=== PATIENT | male | born 1950 | race Caucasian/White ===

== ENCOUNTER 2022-07-21 13:46 | Emergency (ER) | payer MEDICARE, OTHER, SELFPAY ==
[2022-07-21 13:50] VITALS: BP 146/70; PULSE 67; RESP 18; TEMP 36.9; O2SAT 98
--- NOTE | 2022-07-21 14:08 | DI.RAD.S_ITS ---
PROCEDURE: XR CHEST 1V INDICATIONS: chest pain TECHNIQUE: One view of the chest was acquired. COMPARISON: None. FINDINGS: Surgical changes and devices: Sternotomy and CABG. Lungs and pleura: Mildly increased pulmonary vascularity. No pleural effusions or pneumothorax. Mediastinum: Mediastinal contours appear normal. Heart size is mildly increased. Bones and chest wall: No suspicious bony lesions. Overlying soft tissues appear unremarkable. IMPRESSION: Mild cardiomegaly and mildly increased pulmonary vascularity suggesting mild CHF. Dictated by: Darryl Palomino M.D. on 07/21/2022 at 14:30 Approved by: Darryl Palomino M.D. on 07/21/2022 at 14:31
[2022-07-21 14:26] LABS: Add Manual Diff / Slide Review NO; Basophils Absolute Auto 100 /uL (0-100); Basophils Percent Auto 0.7 % (0-2); Eosinophils Absolute Auto 300 /uL (0-450); Eosinophils Percent Auto 2.9 % (2-4); Hematocrit 21.6 % (41-53); Hemoglobin 7.7 g/dL (13.5-17.5); Lymphocytes Absolute Auto 1300 /uL (1100-4500); Lymphocytes Percent Auto 14.2 % (25-40); Mean Corpuscular HGB Conc 35.4 % (30-36); Mean Corpuscular Hemoglobin 35.2 PG (26-34); Mean Corpuscular Volume 99.6 fL (80-100); Monocytes Absolute Auto 500 /uL (0-900); Monocytes Percent Auto 5.8 % (3-14); Neutrophils Absolute Auto 7000 /uL (1500-7000); Neutrophils Percent Auto 76.4 % (50-75); Platelet Count 168 X10^3/uL (150-400); Red Blood Cell Count 2.17 X10^6/uL (4.5-5.9); White Blood Cell Count 9.2 X10^3/uL (4.5-11.0)
[2022-07-21 14:35] LABS: Alanine Aminotransferase 16 IU/L (<50); Albumin 3.9 g/dL (3.5-5.0); Albumin Globulin Ratio 1.3 (1.0-2.8); Alkaline Phosphatase 105 U/L (38-126); Aspartate Aminotransferase 28 IU/L (17-59); Bilirubin Total 0.5 mg/dL (0.2-1.3); Calcium 8.3 mg/dL (8.4-10.2); Carbon Dioxide 26 mmol/L (22-32); Chloride 93 mmol/L (98-107); Creatine Kinase 70 U/L (55-170); Globulin 3.1 g/dL (1.7-4.1); Glucose 90 mg/dL (80-110); HEMOLYSIS < 15 (0-50); Lipase 188 U/L (23-300); Magnesium 2.5 mg/dL (1.6-2.3); Potassium 4.5 mmol/L (3.4-5.1); Sodium 138 mmol/L (137-145)
[2022-07-21 14:46] LABS: Troponin I 0.016 ng/mL (0.01-0.034)
[2022-07-21 14:48] LABS: BUN Creatinine Ratio 6.1 (6-22); Estimated Glomerular Filt Rate 4 mL/min (>60)
[2022-07-21 14:50] LABS: Blood Urea Nitrogen 74 mg/dL (9-20)
[2022-07-21 16:10] LABS: Prothrombin Time 11.9 SECONDS (10.1-12.7)
[2022-07-21 16:12] LABS: Lactate Dehydrogenase 355 U/L (313-618)
[2022-07-21 16:13] LABS: PTT Partial Thromboplastin Tim 30 SECONDS (26-36)
[2022-07-21 16:40] VITALS: BP 144/72; PULSE 64
[2022-07-21 16:42] VITALS: BP 146/72; PULSE 65
--- NOTE | 2022-07-21 16:44 | ED_ITS ---
HPI - Syncope General Chief Complaint: Syncope Stated Complaint: Syncope Time Seen by Provider: 07/21/22 14:06 Source: patient and EMS Mode of arrival: EMS Limitations: no limitations History of Present Illness HPI narrative: Patient is a 71-year-old male who presents to the emergency room today with complaint of decreased level of consciousness started today while he was in a soccer game. states that she noticed it while the patient was at the game he had some food in his hand and he slowly started to slump over and food started to fall onto the ground. As the and daughter tried to arouse the patient he was arousable. The patient never lost consciousness. Patient states he remembers everything and did not pass out. Patient admits to a history of hypertension history of current renal failure and need for daily dialysis and history of a recent AAA that was done in February. Patient also admits to a recent diagnosis of anemia that needs to be worked up. States that the nurse of his dialysis provider informed him that his hemoglobin was low on Saturday of last week and that he needs to follow up with them for an appointment. Patient also states that he needed a L of blood infused after his AAA surgery done. also states the patient has been receiving iron. Patient and states that they are from out of town and just relocated to this area on your leg to establish care. Patient is here being seen at a clinic in [place] and that their kidney doctor this time is Dr. Wei. Patient denies hematemesis hematochezia or hematuria. Patient states that she has an appointment scheduled on July 27 with a provider locally here establish PCP care. Patient also states that he is currently on Plavix. Related Data Allergies Allergy/AdvReac Type Severity Reaction Status Date / Time No Known Drug Allergies Allergy Verified 07/21/22 14:03 Review of Systems Review of Systems Narrative: R.O.S.: General: No fever, chills or fatigue. Cardiovascular: No chest pain or palpitations Respiratory: No S.O.B. HEENT: No congestion, ear pain, rhinorrhea, sore throat or tinnitus Gastrointestinal: No nausea or vomiting : No urinary concerns Skin: No rash or associated abnormalities Musculoskeletal: No pain in muscles or joints, no limitation of range of motion, no paresthesia or numbness. ?? Neurological: Incident of decreased level consciousness Patient History Social History Smoking Status: Current every day smoker Smoking Status: Current every day smoker tobacco type: cigarettes alcohol intake frequency: holidays/special occasions only Substance Use Type: does not use Exam Narrative Exam Narrative: Physical Exam: ? General: normal appearance, well developed, well nourished, alert, and awake. Not in acute distress. ? Head: Normocephalic, no lesions. Chest: Lungs CTAB, no rales, rhonchi or wheezes. ?? Heart: RRR, no murmurs, rubs or gallops. Eyes: PERRLA, EOM's full, conjunctivae clear. ? Neuro: Physiological, no localizing findings, CN3-12 intact. ?? Extremities: Warm, well perfused, FROM, no deformities, no edema. ?? Skin: Normal, no rashes, no lesions noted. ?? PSYCHIATRIC: The mood is good, no blunted affect. Speech is clear. Thought process is linear, thought content is appropriate. The voice is without significant inflection. Gastrointestinal: Soft; NT; ND; Pos BS with Neg. rebound tenderness. No scars or major deformities noted on Visual Inspection. Rectal: Guaiac was negative. Rectal exam was unremarkable. Patient had no worse lesions vesicles lacerations tears or active bleeding noted on vis ualization of the anus. Patient also had good rectal tone. Initial Vital Signs Initial Vital Signs: Vital Signs Temperature 98.4 F 07/21/22 13:50 Pulse Rate 67 07/21/22 13:50 Respiratory Rate 18 07/21/22 13:50 Blood Pressure 146/70 H 07/21/22 13:50 Pulse Oximetry 98 07/21/22 13:50 Oxygen Delivery Method 07/21/22 13:50 Course Orders Ordered: ED Orders 07/21/22 14:04 EKG-12 Lead Routine 07/21/22 14:08 XR chest 1V Stat 07/21/22 14:24 Complete Blood Count AUTO DIFF Stat Comprehensive Metabolic Panel Stat Lipase Stat Magnesium Stat Troponin & CK Cardiac Panel Stat 07/21/22 15:00 Type and Screen Stat 07/21/22 16:04 Lactate Dehydrogenase Stat PTT [Partial Thromboplastin Time] Stat Prothrombin Time INR Stat Vital Signs Vital signs: Vital Signs - 8 hr 07/21/22 13:50 07/21/22 16:40 07/21/22 16:42 Temperature 98.4 F Pulse Rate 67 64 65 Respiratory Rate 18 Blood Pressure 146/70 H 144/72 H 146/72 H Pulse Oximetry 98 Oxygen Delivery Method Room Air 07/21/22 16:45 Temperature Pulse Rate 72 Respiratory Rate Blood Pressure 114/54 L Pulse Oximetry Oxygen Delivery Method MDM - Syncope Lab Data Result diagrams: 07/21/22 14:24 07/21/22 14:24 Labs: Lab Results 07/21/22 07/21/22 07/21/22 Range/Units 14:24 14:24 15:00 WBC 9.2 (4.5-11.0) X10^3/uL RBC 2.17 L (4.5-5.9) X10^6/uL Hgb 7.7 L (13.5-17.5) g/dL Hct 21.6 L (41-53) % MCV 99.6 (80-100) fL MCH 35.2 H (26-34) PG MCHC 35.4 (30-36) % RDW 15.0 H (11.6-14.8) % Plt Count 168 (150-400) X10^3/uL Neut % (Auto) 76.4 H (50-75) % Lymph % (Auto) 14.2 L (25-40) % [place] % (Auto) 5.8 (3-14) % Eos % (Auto) 2.9 (2-4) % Baso % (Auto) 0.7 (0-2) % Neut # (Auto) 7000 (9033-5592) /uL Lymph # (Auto) 1300 (9782-5286) /uL [place] # (Auto) 500 (0-900) /uL Eos # (Auto) 300 (0-450) /uL Baso # (Auto) 100 (0-100) /uL PT (10.1-12.7) SECONDS INR (0.9-1.3) APTT (26-36) SECONDS Sodium 138 (137-145) mmol/L Potassium 4.5 (3.4-5.1) mmol/L Chloride 93 L (98-107) mmol/L Carbon Dioxide 26 (22-32) mmol/L BUN 74 H (9-20) mg/dL Creatinine 12.15 H* (0.66-1.25) mg/dL Estimated GFR 4 L (>60) mL/min BUN/Creatinine Ratio 6.1 (6-22) Glucose 90 (80-110) mg/dL Calcium 8.3 L (8.4-10.2) mg/dL Magnesium 2.5 H (1.6-2.3) mg/dL Total Bilirubin 0.5 (0.2-1.3) mg/dL AST 28 (17-59) IU/L ALT 16 (<50) IU/L Alkaline Phosphatase 105 (38-126) U/L Lactate Dehydrogenase (313-618) U/L Total Creatine Kinase 70 (55-170) U/L CK-MB (CK-2) TNP CK-MB (CK-2) Rel Index TNP Troponin I 0.016 (0.01-0.034) ng/mL Total Protein 7.0 (6.3-8.2) g/dL Albumin 3.9 (3.5-5.0) g/dL Globulin 3.1 (1.7-4.1) g/dL Albumin/Globulin Ratio 1.3 (1.0-2.8) Lipase 188 (23-300) U/L Blood Type O Positive Antibody Screen Negative 07/21/22 07/21/22 Range/Units 16:04 16:04 WBC (4.5-11.0) X10^3/uL RBC (4.5-5.9) X10^6/uL Hgb (13.5-17.5) g/dL Hct (41-53) % MCV (80-100) fL MCH (26-34) PG MCHC (30-36) % RDW (11.6-14.8) % Plt Count (150-400) X10^3/uL Neut % (Auto) (50-75) % Lymph % (Auto) (25-40) % [place] % (Auto) (3-14) % Eos % (Auto) (2-4) % Baso % (Auto) (0-2) % Neut # (Auto) (1572-5706) /uL Lymph # (Auto) (5871-6665) /uL [place] # (Auto) (0-900) /uL Eos # (Auto) (0-450) /uL Baso # (Auto) (0-100) /uL PT 11.9 (10.1-12.7) SECONDS INR 1.0 (0.9-1.3) APTT 30 (26-36) SECONDS Sodium (137-145) mmol/L Potassium (3.4-5.1) mmol/L Chloride (98-107) mmol/L Carbon Dioxide (22-32) mmol/L BUN (9-20) mg/dL Creatinine (0.66-1.25) mg/dL Estimated GFR (>60) mL/min BUN/Creatinine Ratio (6-22) Glucose (80-110) mg/dL Calcium (8.4-10.2) mg/dL Magnesium (1.6-2.3) mg/dL Total Bilirubin (0.2-1.3) mg/dL AST (17-59) IU/L ALT (<50) IU/L Alkaline Phosphatase (38-126) U/L Lactate Dehydrogenase 355 (313-618) U/L Total Creatine Kinase (55-170) U/L CK-MB (CK-2) CK-MB (CK-2) Rel Index Troponin I (0.01-0.034) ng/mL Total Protein (6.3-8.2) g/dL Albumin (3.5-5.0) g/dL Globulin (1.7-4.1) g/dL Albumin/Globulin Ratio (1.0-2.8) Lipase (23-300) U/L Blood Type Antibody Screen MDM Narrative Medical decision making narrative: Patient is a 71-year-old male who presents to the emergency room today with complaint a decreased level of consciousness that occurred while at a soccer game today. Labs revealed anemia and to the patient's history he has anemia that has been treated with iron and needs further workup. This will be done by the patient's dialysis provide her PCP. Patient has an appointment scheduled to establish care with his PCP. Patient is seeing his dialysis provider regularly. Guaiac stool was negative patient posturals were not indicative of any emergent concerns at this time. Patient advised to follow up with his provider and dialysis provider. Patient advised to return to the emergency room if any emergent concerns arise. Discharge Plan Departure Patient Disposition: Home Clinical Impression: Decreased level of consciousness, Syncope due to orthostatic hypotension Instructions: DI for Syncope in Adults (Fainting), Fainting Activity Restrictions/Additional Instructions: *You have been diagnosed with decreased level of consciousness has resolved. It was also noted that you have anemia. I suggest you continue to follow-up with her primary care provider and your renal provider in regards to your anemia. Also suggest she return to the emergency room if any [ ] *What to do: *Please continue to take your regular medications as directed. [ ] New medication prescriptions sent to your pharmacy: [ ] [ ] New medication written as a paper prescription [x]Emergent concerns arise.] No new medications given *Please follow up with your primary care provider in 2-3 days, call for an appointment. Let them know you were seen in the Emergency Department and that we ask that you be seen in follow up. We will electronically transmit a record of today's note if your PCP is in our system *If you do not have a primary care provider please contact the [facility] Resource line at [phone]. They will ask some questions about your medical history and help get you set up with a doctor in the community. *Return to Emergency Department if you should have any new, worsening or concerning symptoms, such as [fever greater than 101 F, shaking chills, worsening pain, persistent vomiting or other bothersome symptoms] Referrals: Lei Newman, [Primary Care Provider] - Visit Report Forms: Patient Portal/API
[2022-07-21 16:45] VITALS: BP 114/54; PULSE 72
== END 2022-07-21 17:10 | disposition home or self-care (01) ==
PROVIDERS: Emergency Provider Physician Assistant; PCP Family Medicine
DX: I95.1 Orthostatic hypotension (principal); R41.89 Other symptoms and signs involving cognitive functions and awareness
CPT/HCPCS: 71045; 80053; 82550; 83615; 83690; 83735; 84484; 85025; 85610; 85730; 86850; 86900; 86901; 93005; 99282; 99284

== ENCOUNTER → 2022-07-27 12:28 | Outpatient (CLI) | payer MEDICARE, OTHER, SELFPAY ==
[2022-07-27 12:58] LABS: Reticulocyte Count, Percent 3.9 % (0.9-2.6)
[2022-07-27 12:59] LABS: Add Manual Diff / Slide Review NO; Basophils Absolute Auto 0 /uL (0-100); Basophils Percent Auto 0.6 % (0-2); Eosinophils Absolute Auto 200 /uL (0-450); Eosinophils Percent Auto 2.4 % (2-4); Hemoglobin 7.2 g/dL (13.5-17.5); Lymphocytes Absolute Auto 900 /uL (1100-4500); Lymphocytes Percent Auto 12.3 % (25-40); Mean Corpuscular Hemoglobin 35.8 PG (26-34); Mean Corpuscular Volume 99.4 fL (80-100); Monocytes Absolute Auto 400 /uL (0-900); Monocytes Percent Auto 5.5 % (3-14); Neutrophils Absolute Auto 5600 /uL (1500-7000); Neutrophils Percent Auto 79.2 % (50-75); Platelet Count 158 X10^3/uL (150-400); Red Cell Distribution Width 14.9 % (11.6-14.8); White Blood Cell Count 7.1 X10^3/uL (4.5-11.0)
[2022-07-27 13:04] LABS: Hematocrit 19.9 % (41-53)
[2022-07-27 13:41] LABS: HEMOLYSIS < 15 (0-50); Iron 186 ug/dL (49-181)
[2022-07-27 13:43] LABS: Alanine Aminotransferase 13 IU/L (<50); Albumin 3.6 g/dL (3.5-5.0); Albumin Globulin Ratio 1.4 (1.0-2.8); Alkaline Phosphatase 105 U/L (38-126); Aspartate Aminotransferase 18 IU/L (17-59); Bilirubin Total 0.5 mg/dL (0.2-1.3); Blood Urea Nitrogen 68 mg/dL (9-20); Carbon Dioxide 25 mmol/L (22-32); Chloride 94 mmol/L (98-107); Cholesterol 94 mg/dL (140-199); Globulin 2.5 g/dL (1.7-4.1); Glucose 142 mg/dL (80-110); HDL Cholesterol 28 mg/dL (40-60); HEMOLYSIS < 15 (0-50); LDL Cholesterol Calculated 40 mg/dL (<100); Potassium 4.6 mmol/L (3.4-5.1); Sodium 138 mmol/L (137-145); Total Protein 6.1 g/dL (6.3-8.2); Triglycerides 129 mg/dL (35-150)
[2022-07-27 13:51] LABS: BUN Creatinine Ratio 6.1 (6-22); Estimated Glomerular Filt Rate 5 mL/min (>60)
[2022-07-27 13:52] LABS: Percent Iron Saturation 67 % (20-50); Total Iron Binding Capacity 278 ug/dL (261-462); Transferrin 201 mg/dL (206-381)
[2022-07-27 14:13] LABS: TSH w/ Reflex to FT4 2.08 uIU/mL (0.47-4.68)
[2022-07-27 14:31] LABS: Vitamin B12 796 pg/mL (239-931)
== END ==
PROVIDERS: PCP Family Medicine; Referring Provider Family Medicine; Visit Provider Family Medicine
DX: D64.9 Anemia, unspecified (principal)
CPT/HCPCS: 36415; 80053; 80061; 82607; 83540; 83550; 84443; 85025; 85045

== ENCOUNTER 2022-07-27 13:51 | Emergency (ER) | payer MEDICARE, OTHER, SELFPAY ==
[2022-07-27] VITALS (15 sets, daily range): BP systolic 130–161; BP diastolic 63–73; PULSE 64–72; RESP 16–20; TEMP 36.4–36.9; O2SAT 93–99; BMI 26.9
--- NOTE | 2022-07-27 14:11 | ED_ITS ---
HPI - Recheck/Abnormal Lab/Rx <Eleazar Gould DO - Last Filed: 07/27/22 18:17> General Chief Complaint: Recheck/Abnormal Lab/Rx Stated Complaint: Anemic- sent by Time Seen by Provider: 07/27/22 14:04 Source: patient Mode of arrival: Ambulatory History of Present Illness HPI narrative: Patient is a 71-year-old male. His end-stage renal disease. Does peritoneal dialysis at night. Also has history of coronary artery disease. Several days ago he was seen in the emergency department eventually released after having an episode of lightheadedness. He was following up with a new primary doctor when labs were drawn today. His hemoglobin hematocrit lower from a couple days ago. He was sent back to the emergency department to have a blood transfusion. Patient states that he is feeling about the same as what he did couple days ago. He has had blood transfusion in the past. He understands risks and benefits. Has no questions. Has been taking all his medications as directed. Related Data Home Medications Medication Instructions Recorded Confirmed WesTab (Lactose Free) PO 07/27/22 07/27/22 aspirin 325 mg tablet 325 mg PO DAILY 07/27/22 07/27/22 calcitriol 0.25 mcg capsule 0.25 mcg PO 07/27/22 07/27/22 sevelamer carbonate 800 mg tablet 800 mg PO .COMPLEX 07/27/22 07/27/22 Previous Rx's Medication Instructions Recorded amlodipine 10 mg tablet 10 mg PO DAILY #90 tabs 07/27/22 atorvastatin 40 mg tablet 40 mg PO BEDTIME #90 tabs 07/27/22 carvedilol 25 mg tablet 25 mg PO BID #180 tabs 07/27/22 clopidogrel 75 mg tablet 75 mg PO DAILY #90 tabs 07/27/22 isosorbide mononitrate 60 mg 60 mg PO DAILY #90 tabs 07/27/22 tablet,extended release 24 hr pantoprazole 40 mg tablet,delayed 40 mg PO DAILY #90 tabs 07/27/22 release zolpidem 5 mg tablet 5 mg PO BEDTIME PRN insomnia #30 07/27/22 tabs Allergies Allergy/AdvReac Type Severity Reaction Status Date / Time No Known Drug Allergies Allergy Verified 07/27/22 14:02 Review of Systems <DO Omari Farooq Last Filed: 07/27/22 18:17> Review of Systems ROS Unobtainable: All systems reviewed & are unremarkable except as noted in HPI and below Patient History <DO Omari Farooq Last Filed: 07/27/22 18:17> Medical History Abdominal aneurysm without mention of rupture Anemia CAD (coronary artery disease) GERD (gastroesophageal reflux disease) Hyperlipidemia Hypertension Insomnia Renal failure Social History Smoking Status: Current every day smoker Smoking Status: Current every day smoker tobacco type: cigarettes alcohol intake frequency: holidays/special occasions only Substance Use Type: does not use Exam <DO Omari Farooq Last Filed: 07/27/22 18:17> Initial Vital Signs Initial Vital Signs: Vital Signs Pulse Rate 72 07/27/22 13:56 Blood Pressure 139/65 07/27/22 13:56 Pulse Oximetry 93 07/27/22 13:56 Oxygen Delivery Method 07/27/22 13:56 Const General: cooperative HENMT Head: normal to inspection and normocephalic Resp Effort & Inspection: normal respiratory effort Auscultation: clear to auscultation bilaterally Cardio Rate: regular rate Rhythm: regular rhythm GI Inspection: normal to inspection Skin General: no rashes or lesions noted Neuro General: patient alert, patient awake and moves all extremities Extrem General: normal to inspection and capillary refill normal <Terrance Paredes DO - Last Filed: 07/28/22 00:25> Initial Vital Signs Initial Vital Signs: Vital Signs Pulse Rate 72 07/27/22 13:56 Blood Pressure 139/65 07/27/22 13:56 Pulse Oximetry 93 07/27/22 13:56 Oxygen Delivery Method 07/27/22 13:56 Course <Eleazar Gould DO - Last Filed: 07/27/22 18:17> Orders Ordered: ED Orders 07/27/22 18:30 Hemoglobin and Hematocrit Stat Vital Signs Vital signs: Vital Signs - 8 hr 07/27/22 16:37 07/27/22 16:30 07/27/22 16:30 Temperature 97.6 F Pulse Rate 68 68 Respiratory Rate 16 Blood Pressure 158/73 H 161/72 H Pulse Oximetry 99 Oxygen Delivery Method Room Air 07/27/22 16:37 07/27/22 16:37 07/27/22 17:00 Temperature Pulse Rate 68 Respiratory Rate Blood Pressure 158/73 H 148/69 H Pulse Oximetry 99 Oxygen Delivery Method Room Air 07/27/22 17:00 07/27/22 17:57 07/27/22 17:30 Temperature 98.2 F Pulse Rate 64 65 Respiratory Rate 16 Blood Pressure 150/72 H 149/70 H Pulse Oximetry 98 Oxygen Delivery Method Room Air 07/27/22 17:30 07/27/22 17:57 07/27/22 17:57 Temperature Pulse Rate 65 65 Respiratory Rate Blood Pressure 150/72 H Pulse Oximetry 96 96 Oxygen Delivery Method Room Air Room Air 07/27/22 18:00 07/27/22 18:00 07/27/22 18:30 Temperature Pulse Rate 65 Respiratory Rate Blood Pressure 150/73 H 151/72 H Pulse Oximetry 97 Oxygen Delivery Method 07/27/22 18:30 Temperature Pulse Rate 65 Respiratory Rate Blood Pressure Pulse Oximetry 97 Oxygen Delivery Method Room Air <Terrance Paredes, DO - Last Filed: 07/28/22 00:25> Orders Ordered: ED Orders 07/27/22 18:30 Hemoglobin and Hematocrit Stat Vital Signs Vital signs: Vital Signs - 8 hr 07/27/22 16:37 07/27/22 16:30 07/27/22 16:30 Temperature 97.6 F Pulse Rate 68 68 Respiratory Rate 16 Blood Pressure 158/73 H 161/72 H Pulse Oximetry 99 Oxygen Delivery Method Room Air 07/27/22 16:37 07/27/22 16:37 07/27/22 17:00 Temperature Pulse Rate 68 Respiratory Rate Blood Pressure 158/73 H 148/69 H Pulse Oximetry 99 Oxygen Delivery Method Room Air 07/27/22 17:00 07/27/22 17:57 07/27/22 17:30 Temperature 98.2 F Pulse Rate 64 65 Respiratory Rate 16 Blood Pressure 150/72 H 149/70 H Pulse Oximetry 98 Oxygen Delivery Method Room Air 07/27/22 17:30 07/27/22 17:57 07/27/22 17:57 Temperature Pulse Rate 65 65 Respiratory Rate Blood Pressure 150/72 H Pulse Oximetry 96 96 Oxygen Delivery Method Room Air Room Air 07/27/22 18:00 07/27/22 18:00 07/27/22 18:30 Temperature Pulse Rate 65 Respiratory Rate Blood Pressure 150/73 H 151/72 H Pulse Oximetry 97 Oxygen Delivery Method 07/27/22 18:30 Temperature Pulse Rate 65 Respiratory Rate Blood Pressure Pulse Oximetry 97 Oxygen Delivery Method Room Air MDM - Recheck/Abnormal Lab/Rx <Eleazar Gould, DO - Last Filed: 07/27/22 18:17> Lab Data Result diagrams: 07/27/22 18:30 Labs: Lab Results 07/27/22 07/27/22 Range/Units 14:10 18:30 Hgb 7.3 L (13.5-17.5) g/dL Hct 20.3 L* (41-53) % Blood Type O Positive Antibody Screen Negative Crossmatch See Detail ECG Data Attestation: I personally reviewed and interpreted this ECG as follows: Interpretation: Sinus rhythm Ventricular rate is 69 Normal axis Normal QRS Normal QTC No ST T wave changes [facility] Narrative Medical decision making narrative: Patient is anemic. It is slightly lower than what it was a couple days ago. He has no signs of any acute bleeding. Has symptoms that could very well be because he is anemic. He has had a blood transfusion in the past. Will transfuse 1 unit of packed red blood cells. Care turned over to Dr. Paredes to follow-up and disposition after transfusion. <Terrance Paredes, DO - Last Filed: 07/28/22 00:25> Lab Data Labs: Lab Results 07/27/22 07/27/22 Range/Units 14:10 18:30 Hgb 7.3 L (13.5-17.5) g/dL Hct 20.3 L* (41-53) % Blood Type O Positive Antibody Screen Negative Crossmatch See Detail [facility] Narrative Medical decision making narrative: Patient is anemic. It is slightly lower than what it was a couple days ago. He has no signs of any acute bleeding. Has symptoms that could very well be because he is anemic. He has had a blood transfusion in the past. Will transfuse 1 unit of packed red blood cells. Care turned over to Dr. Paredes to follow-up and disposition after transfusion. [1800] (Reggie) Patient received in sign out from Dr. Mock]. I have reviewed the clinical course and performed an independent history and physical exam.He is feeling much better and hoping he can go home Patient ambulates to the department without difficulty and is not hypoxemic, and is now appropriate for discharge. Patient had questions answered to his apparent satisfaction and is given extensive return precautions Discharge Plan Departure Patient Disposition: Home Clinical Impression: Anemia Qualifiers: Anemia type: unspecified type Qualified Code(s): D64.9 - Anemia, unspecified Instructions: Anemia Activity Restrictions/Additional Instructions: *You have been diagnosed with [symptomatic anemia status post transfusion. Thankfully your history and physical exam are very reassuring and your feeling much better after receiving a unit of blood.] *What to do: *Please continue to take your regular medications as directed. *Please follow up with your primary care provider in 2-3 days, call for an appointment. Let them know you were seen in the Emergency Department and that we ask that you be seen in follow up. We will electronically transmit a record of today's note if your PCP is in our system *Return to Emergency Department if you should have any new, worsening or concerning symptoms, such as [fever greater than 101 F, shaking chills, worsening pain, persistent vomiting or other bothersome symptoms] Prescriptions: No Action calcitriol 0.25 mcg capsule 0.25 mcg PO Label Comments: TAKE 1 CAPSULE BY MOUTH EVERY DAY aspirin 325 mg tablet 325 mg PO DAILY sevelamer carbonate 800 mg tablet 800 mg PO .COMPLEX Rx Instructions: 800 mg orally; must administer with a meal/food Three tabs in AM Two tabs in PM (if snack) WesTab (Lactose Free) PO amlodipine 10 mg tablet 10 mg PO DAILY Qty: 90 3RF atorvastatin 40 mg tablet 40 mg PO BEDTIME Qty: 90 3RF carvedilol 25 mg tablet 25 mg PO BID Qty: 180 3RF Rx Instructions: must administer with a meal/food clopidogrel 75 mg tablet 75 mg PO DAILY Qty: 90 3RF isosorbide mononitrate 60 mg tablet extended release 24 hr 60 mg PO DAILY Qty: 90 3RF pantoprazole 40 mg tablet,delayed release (DR/EC) 40 mg PO DAILY Qty: 90 3RF zolpidem 5 mg tablet 5 mg PO BEDTIME PRN (Reason: insomnia) Qty: 30 2RF Referrals: Lei Newman, [Primary Care Provider] - Visit Report Forms: Patient Portal/API
[2022-07-27 18:37] LABS: Hemoglobin 7.3 g/dL (13.5-17.5)
[2022-07-27 18:39] LABS: Hematocrit 20.3 % (41-53)
== END 2022-07-27 19:05 | disposition home or self-care (01) ==
PROVIDERS: Emergency Medicine; Emergency Provider Emergency Medicine; PCP Family Medicine
DX: D64.9 Anemia, unspecified (principal); N18.6 End stage renal disease; Z99.2 Dependence on renal dialysis; I25.10 Atherosclerotic heart disease of native coronary artery without angina pectoris
CPT/HCPCS: 36415; 36430; 80053; 80061; 82607; 83540; 83550; 84443; 85014; 85018; 85025; 85045; 86850; 86900; 86901; 93005; 93010; 99284; P9016

== ENCOUNTER → 2022-08-04 08:55 | Outpatient (CLI) | payer MEDICARE, OTHER, SELFPAY ==
[2022-08-04 09:19] LABS: Add Manual Diff / Slide Review NO; Basophils Absolute Auto 100 /uL (0-100); Basophils Percent Auto 0.7 % (0-2); Eosinophils Absolute Auto 300 /uL (0-450); Eosinophils Percent Auto 3.1 % (2-4); Hematocrit 23.3 % (41-53); Hemoglobin 8.3 g/dL (13.5-17.5); Lymphocytes Absolute Auto 1100 /uL (1100-4500); Lymphocytes Percent Auto 12.4 % (25-40); Mean Corpuscular HGB Conc 35.8 % (30-36); Mean Corpuscular Hemoglobin 36.2 PG (26-34); Mean Corpuscular Volume 101.1 fL (80-100); Monocytes Absolute Auto 500 /uL (0-900); Monocytes Percent Auto 5.7 % (3-14); Neutrophils Absolute Auto 6900 /uL (1500-7000); Neutrophils Percent Auto 78.1 % (50-75); Platelet Count 146 X10^3/uL (150-400); Red Blood Cell Count 2.31 X10^6/uL (4.5-5.9); Red Cell Distribution Width 16.1 % (11.6-14.8); White Blood Cell Count 8.8 X10^3/uL (4.5-11.0)
== END ==
PROVIDERS: PCP Family Medicine; Referring Provider Family Medicine; Visit Provider Family Medicine
DX: D64.9 Anemia, unspecified (principal)
CPT/HCPCS: 36415; 85025

== ENCOUNTER → 2022-09-19 11:03 | Outpatient (CLI) | payer MEDICARE, OTHER, SELFPAY ==
--- NOTE | 2022-09-19 11:05 | DI.CT.S_ITS ---
PROCEDURE: CT ANGIO ABDOMEN PELVIS INDICATIONS: Follow-up evaluation regarding AAA repair March 2022 TECHNIQUE: After the administration of intravenous contrast, 2.5 mm thick sections acquired from the diaphragm to the symphysis. 10 mm maximum-intensity projection (MIP) reformats were then acquired. For radiation dose reduction, the following was used: automated exposure control. COMPARISON: None. FINDINGS: Image quality: Excellent. Aorta: There is been endograft treatment of an infrarenal abdominal aortic aneurysm. There is no type 1 or type 2 endoleak noted. The excluded aneurysm sac currently measures 4.6 x 4.3 cm. Mesenteric arteries: SMA and celiac are patent. KEITH is probably occluded at its origin. It likely fills retrograde to its origin. Renal arteries: There is aneurysmal dilatation in a fusiform matter of the proximal bilateral renal arteries, which each measure 1.3 cm in diameter. 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 Right pelvic arteries: Patent common iliac and external iliac, nonaneurysmal with no significant stenosis. Left pelvic arteries: Patent common iliac and external iliac, non aneurysmal, with no significant stenosis. Extravascular soft tissues: Lung bases are clear. Mild cardiomegaly. Liver is normal in size and enhancement. Gallbladder is contracted, within normal limits. . Biliary system is non dilated. Pancreas enhances normally. Spleen is enlarged, measuring 14.5 cm. No adrenal nodules. Kidneys are normal in size and enhancement, without hydronephrosis. Non opacified bowel loops are normal in wall thickness and caliber. Moderate abdominal and pelvic ascites. Peritoneal dialysis catheter in place. Bladder is decompressed. No retroperitoneal or mesenteric adenopathy. No ventral hernias. No suspicious bony lesions. No vertebral body compression fractures. IMPRESSION: 1. Remote endovascular repair of an abdominal aortic aneurysm without endoleak. 2. 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 These aneurysmal segments are thrombosed. The kidneys are atrophied, and almost completely nonfunctional. 3. Ascites consistent with peritoneal dialysis, with peroneal dialysis catheter in place. 4. Splenomegaly. Dictated by: Marin Velazquez M.D. on 09/19/2022 at 17:03 Approved by: Marin Velazquez M.D. on 09/19/2022 at 17:14
== END ==
PROVIDERS: PCP Family Medicine; Referring Provider Family Medicine; Visit Provider Family Medicine
DX: I72.2 Aneurysm of renal artery (principal); N26.1 Atrophy of kidney (terminal); R18.8 Other ascites; R16.1 Splenomegaly, not elsewhere classified; Z99.2 Dependence on renal dialysis
CPT/HCPCS: 74174; Q9967

== ENCOUNTER 2022-09-21 14:23 | Emergency (ER) | payer MEDICARE, OTHER, SELFPAY ==
[2022-09-21] VITALS (34 sets, daily range): BP systolic 125–168; BP diastolic 60–110; PULSE 68–84; RESP 12–27; TEMP 36.4–37.2; O2SAT 93–99; BMI 26.6
--- NOTE | 2022-09-21 14:41 | DI.RAD.S_ITS ---
PROCEDURE: XR CHEST 1V INDICATIONS: pulm edema, ascitis, peritoneal dialysis TECHNIQUE: One view of the chest was acquired. COMPARISON: [facility], CR, XR CHEST 1V, 07/21/2022, 14:13. FINDINGS: Surgical changes and devices: Sternotomy wires, presumed prior CABG.. Lungs and pleura: Lungs are mildly edematous. No pleural effusions or pneumothorax. Mediastinum: Mediastinal contours appear normal. Heart size is at the upper limits of normal. Bones and chest wall: No suspicious bony lesions. Overlying soft tissues appear unremarkable. IMPRESSION: Mild chronic volume overload appearance, prior CABG. No pneumonia found. Dictated by: Mitesh Laguerre M.D. on 09/21/2022 at 15:31 Approved by: Mitesh Laguerre M.D. on 09/21/2022 at 15:32
--- NOTE | 2022-09-21 14:46 | ED_ITS ---
HPI - Recheck/Abnormal Lab/Rx General Chief Complaint: Recheck/Abnormal Lab/Rx Stated Complaint: blood count low/blood transfusion/st from clinic Time Seen by Provider: 09/21/22 14:34 Source: patient Mode of arrival: Ambulatory History of Present Illness HPI narrative: This is a 71-year-old gentleman who presents to the emergency department after the peritoneal Dialysis Clinic sent him over to the emergency department for anemia. His end-stage renal disease.? Does peritoneal dialysis at night.? Also has history of coronary artery disease. Patient states that he is feeling about the same as when he received a blood transfusion last time. Him and his care provider do not remember his hemoglobin but states it was likely 6. something. He denies any recent fever, chills, worsening of any specific health concerns. Patient states that his shortness of breath is exertional and it is at baseline for him, states that he has a dialysate solution at home to help pull off more fluid when he is fluid overloaded. Was told not to use it recently. Patient also states that he does not make urine. Patient denies any symptoms of bleedi ng, denies any blood in his stool, denies any nausea vomiting. Description of abnormal result: Patient's hemoglobin came back today at 7.1 with a hematocrit of 19.8, this is a critical level, 1 unit of packed cells was ordered to transfuse when this lab work resulted. Related Data Home Medications Medication Instructions Recorded Confirmed WesTab (Lactose Free) PO 07/27/22 08/03/22 aspirin 325 mg tablet 325 mg PO DAILY 07/27/22 08/03/22 calcitriol 0.25 mcg capsule 0.25 mcg PO 07/27/22 08/03/22 sevelamer carbonate 800 mg tablet 800 mg PO .COMPLEX 07/27/22 08/03/22 Previous Rx's Medication Instructions Recorded amlodipine 10 mg tablet 10 mg PO DAILY #90 tabs 07/27/22 atorvastatin 40 mg tablet 40 mg PO BEDTIME #90 tabs 07/27/22 carvedilol 25 mg tablet 25 mg PO BID #180 tabs 07/27/22 clopidogrel 75 mg tablet 75 mg PO DAILY #90 tabs 07/27/22 isosorbide mononitrate 60 mg 60 mg PO DAILY #90 tabs 07/27/22 tablet,extended release 24 hr pantoprazole 40 mg tablet,delayed 40 mg PO DAILY #90 tabs 07/27/22 release zolpidem 5 mg tablet 5 mg PO BEDTIME PRN insomnia #30 07/27/22 tabs Allergies Allergy/AdvReac Type Severity Reaction Status Date / Time No Known Drug Allergies Allergy Verified 09/21/22 14:37 Review of Systems Review of Systems ROS Unobtainable: All systems reviewed & are unremarkable except as noted in HPI and below Patient History Medical History Abdominal aneurysm without mention of rupture Anemia CAD (coronary artery disease) GERD (gastroesophageal reflux disease) Hyperlipidemia Hypertension Insomnia Renal failure Social History Smoking Status: Current every day smoker Smoking Status: Current every day smoker tobacco type: cigarettes alcohol intake frequency: holidays/special occasions only Substance Use Type: does not use Exam Narrative Exam Narrative: Reviewed vitals signs and nursing notes. General: cooperative, comfortable, frail, younger than appearance, generalized weakness with out fever well groomed HEENT: symmetrical facial expressions, moist mucous membranes denies any new symptoms congestion Cardiovascular: regular rate and rhythm, no peripheral edema, warm extremities Respiratory: normal effort, diminished in bases , occasional wet cough, able to speak in complete sentences, without wheezing, stridor, or abnormal breath sounds. No retractions or tachypnea. GI: abdomen distended, likely ascites, nontender to palpation, nondistended, without masses, rebound tenderness or exquisite tenderness with exam. MSK: moves all extremities, neurovascularly intact, no weakness, normal tone Skin: brisk capillary refill, without pallor or erythema Neuro: normal speech and cognition, A&O x3, ambulatory, clear speech Psych: mental status is grossly normal, congruent mood, normal affect, pleasant and cooperative Initial Vital Signs Initial Vital Signs: Vital Signs Temperature 97.5 F L 09/21/22 14:33 Pulse Rate 74 09/21/22 14:33 Respiratory Rate 15 09/21/22 14:33 Blood Pressure 153/70 H 09/21/22 14:33 Pulse Oximetry 96 09/21/22 14:33 Oxygen Delivery Method 09/21/22 14:33 Course Course Course Narrative: Reviewed lab work from [facility] on 09/21/2022 shows hemoglobin of 6.1, hematocrit of 17.3 and he was sent over this morning with these results for blood transfusion Additional Information: Patient's respiratory panel is negative for COVID, influenza a, B and RSV, labs are significant for a BNP of 8710 and lactate of 2.4. Repeat H&H shows decrease, this was redrawn and confirmed. Patient presented with a hemoglobin of 7.1 and after 1 unit packed cells he went down to 6.5, hematocrit initially was 19.8, it came down to 18.3. Patient was ordered 1 more unit of packed cells and remains asymptomatic from a bleeding standpoint without abdominal pain or worsening shortness of breath. Patient has peritoneal dialysis and complete this at home, he will go home and complete this after his blood transfusion which is being given as quickly as possible. Orders Ordered: ED Orders 09/21/22 14:41 Chest [XR chest 1V] Stat 09/21/22 14:47 BNP [NT-proBNP (BNP-Adult 18+)] Stat CBC Auto Diff [Complete Blood Count AUTO DIFF] Stat CMP [Comprehensive Metabolic Panel] Stat Lactate (Lactic Acid) Stat Packed Cells Stat Procalcitonin Stat Type and Screen Stat 09/21/22 15:01 Covid-19 + FLU A/B + RSV - PCR Stat 09/21/22 18:40 Hemoglobin and Hematocrit Stat 09/21/22 19:17 Hemoglobin and Hematocrit Stat Vital Signs Vital signs: Vital Signs - 8 hr 09/21/22 14:33 09/21/22 14:36 09/21/22 14:36 Temperature 97.5 F L Pulse Rate 74 74 Respiratory Rate 15 Blood Pressure 153/70 H 153/70 H Pulse Oximetry 96 97 Oxygen Delivery Method Room Air 09/21/22 15:00 09/21/22 15:01 09/21/22 15:01 Temperature Pulse Rate 68 68 Respiratory Rate 17 19 Blood Pressure 152/71 H Pulse Oximetry 98 97 Oxygen Delivery Method 09/21/22 15:30 09/21/22 15:30 09/21/22 16:10 Temperature 98.8 F Pulse Rate 69 74 Respiratory Rate 14 17 Blood Pressure 164/72 H 144/70 H Pulse Oximetry 97 99 Oxygen Delivery Method Room Air 09/21/22 16:12 09/21/22 16:30 09/21/22 16:00 Temperature 98.2 F 98.7 F Pulse Rate 77 73 Respiratory Rate 18 20 Blood Pressure 147/72 H 151/73 H 144/70 H Pulse Oximetry Oxygen Delivery Method 09/21/22 16:00 09/21/22 16:11 09/21/22 16:11 Temperature Pulse Rate 73 75 Respiratory Rate 19 25 H Blood Pressure 147/72 H Pulse Oximetry 95 96 Oxygen Delivery Method 09/21/22 16:30 09/21/22 16:30 09/21/22 16:45 Temperature Pulse Rate 72 74 Respiratory Rate 17 15 Blood Pressure 151/71 H Pulse Oximetry 97 97 Oxygen Delivery Method 09/21/22 16:45 09/21/22 17:00 09/21/22 17:00 Temperature Pulse Rate 71 Respiratory Rate 15 Blood Pressure 151/73 H 149/70 H Pulse Oximetry 97 Oxygen Delivery Method 09/21/22 17:15 09/21/22 17:15 09/21/22 17:30 Temperature Pulse Rate 72 Respiratory Rate 12 Blood Pressure 155/70 H 150/73 H Pulse Oximetry 96 Oxygen Delivery Method 09/21/22 17:30 09/21/22 17:45 09/21/22 17:45 Temperature Pulse Rate 71 75 Respiratory Rate 14 17 Blood Pressure 150/75 H Pulse Oximetry 97 96 Oxygen Delivery Method 09/21/22 17:57 09/21/22 17:55 09/21/22 19:40 Temperature 98.5 F 98.9 F Pulse Rate 74 74 74 Respiratory Rate 18 21 14 Blood Pressure 148/72 H 148/68 H Pulse Oximetry 95 Oxygen Delivery Method MDM - Recheck/Abnormal Lab/Rx Medical Records Medical records narrative: PROCEDURE:? CT ANGIO ABDOMEN PELVIS ? INDICATIONS:? Follow-up evaluation regarding AAA repair March 2022 ? TECHNIQUE:? After the administration of intravenous contrast, 2.5 mm thick sections acquired from the diaphragm to the symphysis.? 10 mm maximum-intensity projection (MIP) reformats were then acquired.? For radiation dose reduction, the following was used:? automated exposure control.? ? COMPARISON:? None. ? FINDINGS:? Image quality:? Excellent.? ? Aorta:? There is been endograft treatment of an infrarenal abdominal aortic aneurysm.? There is no type 1 or type 2 endoleak noted.? The excluded aneurysm sac currently measures 4.6 x 4.3 cm. ? Mesenteric arteries:? SMA and celiac are patent.? KEITH is probably occluded at its origin. ?It likely fills retrograde to its origin. ? Renal arteries:? There is aneurysmal dilatation in a fusiform matter of the proximal bilateral renal arteries, which each measure 1.3 cm in diameter.? 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 ? Right pelvic arteries:? Patent common iliac and external iliac, nonaneurysmal with no significant stenosis. ? Left pelvic arteries:? Patent common iliac and external iliac, non aneurysmal, with no significant stenosis. ? Extravascular soft tissues:? Lung bases are clear.? Mild cardiomegaly.? Liver is normal in size and enhancement.? Gallbladder is contracted, within normal limits. .? Biliary system is non dilated.? Pancreas enhances normally.? Spleen is enlarged, measuring 14.5 cm. No adrenal nodules.? Kidneys are normal in size and enhancement, without hydronephrosis.? Non opacified bowel loops are normal in wall thickness and caliber.? Moderate abdominal and pelvic ascites.? Peritoneal dialysis catheter in place.? Bladder is decompressed.? No retroperitoneal or mesenteric adenopathy.? No ventral hernias.? No suspicious bony lesions.? No vertebral body compression fractures.? ? IMPRESSION:? ? 1. Remote endovascular repair of an abdominal aortic aneurysm without endoleak. ? 2. 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 These aneurysmal segments are thrombosed.? The kidneys are atrophied, and almost completely nonfunctional. ? 3. Ascites consistent with peritoneal dialysis, with peroneal dialysis catheter in place. ? 4. Splenomegaly.? ? ? Dictated by: Marin Velazquez M.D. on 09/19/2022 at 17:03 ? ? Approved by: Marin Velazquez M.D. on 09/19/2022 at 17:14 ? Lab Data Lab results narrative: Repeat H&H after 1 unit of packed red blood cells shows hemoglobin now of 6.7 and hematocrit of 18.8 which is decreased from his prior draw 1 hour ago. This was redrawn by myself and sent to lab for a stat H&H. 1 unit of packed red blood cells was ordered for transfusion, patient has not had any changes, is not able to admit to this hospital due to peritoneal dialysis and needs to go home to complete his peritoneal dialysis tonight. Result diagrams: 09/21/22 19:17 09/21/22 14:47 Labs: Lab Results 09/21/22 09/21/22 09/21/22 Range/Units 14:47 14:47 14:47 WBC 7.2 (4.5-11.0) X10^3/uL RBC 1.97 L (4.5-5.9) X10^6/uL Hgb 7.1 L (13.5-17.5) g/dL Hct 19.8 L* (41-53) % MCV 100.5 H (80-100) fL MCH 35.8 H (26-34) PG MCHC 35.6 (30-36) % RDW 13.6 (11.6-14.8) % Plt Count 220 (150-400) X10^3/uL Neut % (Auto) 75.1 H (50-75) % Lymph % (Auto) 14.5 L (25-40) % Nolan % (Auto) 5.4 (3-14) % Eos % (Auto) 4.1 H (2-4) % Baso % (Auto) 0.9 (0-2) % Neut # (Auto) 5400 (3055-8261) /uL Lymph # (Auto) 1000 L (1305-4673) /uL Nolan # (Auto) 400 (0-900) /uL Eos # (Auto) 300 (0-450) /uL Baso # (Auto) 100 (0-100) /uL Sodium 131 L (137-145) mmol/L Potassium 4.0 (3.4-5.1) mmol/L Chloride 90 L (98-107) mmol/L Carbon Dioxide 27 (22-32) mmol/L BUN 50 H (9-20) mg/dL Creatinine 9.76 H* (0.66-1.25) mg/dL Estimated GFR 5 L (>60) mL/min BUN/Creatinine Ratio 5.1 L (6-22) Glucose 129 H (80-110) mg/dL Lactate 2.4 H (0.7-2.1) mmol/L Calcium 8.3 L (8.4-10.2) mg/dL Total Bilirubin 0.3 (0.2-1.3) mg/dL AST 18 (17-59) IU/L ALT 17 (<50) IU/L Alkaline Phosphatase 93 (38-126) U/L NT-Pro-B Natriuret Pep 8710 H (<125) pg/mL Total Protein 6.4 (6.3-8.2) g/dL Albumin 3.4 L (3.5-5.0) g/dL Globulin 3.0 (1.7-4.1) g/dL Albumin/Globulin Ratio 1.1 (1.0-2.8) Procalcitonin 0.43 (<0.5) ng/mL SARS-CoV-2 (PCR) (Negative) Influenza A (RT-PCR) (NEGATIVE) Influenza B (RT-PCR) (NEGATIVE) RSV (PCR) (Negative) Blood Type Antibody Screen Crossmatch 09/21/22 09/21/22 09/21/22 Range/Units 14:47 15:01 18:40 WBC (4.5-11.0) X10^3/uL RBC (4.5-5.9) X10^6/uL Hgb 6.7 L* (13.5-17.5) g/dL Hct 18.8 L* (41-53) % MCV (80-100) fL MCH (26-34) PG MCHC (30-36) % RDW (11.6-14.8) % Plt Count (150-400) X10^3/uL Neut % (Auto) (50-75) % Lymph % (Auto) (25-40) % Nolan % (Auto) (3-14) % Eos % (Auto) (2-4) % Baso % (Auto) (0-2) % Neut # (Auto) (7495-8836) /uL Lymph # (Auto) (6327-7938) /uL Nolan # (Auto) (0-900) /uL Eos # (Auto) (0-450) /uL Baso # (Auto) (0-100) /uL Sodium (137-145) mmol/L Potassium (3.4-5.1) mmol/L Chloride (98-107) mmol/L Carbon Dioxide (22-32) mmol/L BUN (9-20) mg/dL Creatinine (0.66-1.25) mg/dL Estimated GFR (>60) mL/min BUN/Creatinine Ratio (6-22) Glucose (80-110) mg/dL Lactate (0.7-2.1) mmol/L Calcium (8.4-10.2) mg/dL Total Bilirubin (0.2-1.3) mg/dL AST (17-59) IU/L ALT (<50) IU/L Alkaline Phosphatase (38-126) U/L NT-Pro-B Natriuret Pep (<125) pg/mL Total Protein (6.3-8.2) g/dL Albumin (3.5-5.0) g/dL Globulin (1.7-4.1) g/dL Albumin/Globulin Ratio (1.0-2.8) Procalcitonin (<0.5) ng/mL SARS-CoV-2 (PCR) Negative (Negative) Influenza A (RT-PCR) Flu a negative (NEGATIVE) Influenza B (RT-PCR) Flu b negative (NEGATIVE) RSV (PCR) Negative (Negative) Blood Type O Positive Antibody Screen Negative Crossmatch See Detail 09/21/22 Range/Units 19:17 WBC (4.5-11.0) X10^3/uL RBC (4.5-5.9) X10^6/uL Hgb 6.5 L* (13.5-17.5) g/dL Hct 18.3 L* (41-53) % MCV (80-100) fL MCH (26-34) PG MCHC (30-36) % RDW (11.6-14.8) % Plt Count (150-400) X10^3/uL Neut % (Auto) (50-75) % Lymph % (Auto) (25-40) % Nolan % (Auto) (3-14) % Eos % (Auto) (2-4) % Baso % (Auto) (0-2) % Neut # (Auto) (8923-6561) /uL Lymph # (Auto) (1926-3509) /uL Nolan # (Auto) (0-900) /uL Eos # (Auto) (0-450) /uL Baso # (Auto) (0-100) /uL Sodium (137-145) mmol/L Potassium (3.4-5.1) mmol/L Chloride (98-107) mmol/L Carbon Dioxide (22-32) mmol/L BUN (9-20) mg/dL Creatinine (0.66-1.25) mg/dL Estimated GFR (>60) mL/min BUN/Creatinine Ratio (6-22) Glucose (80-110) mg/dL Lactate (0.7-2.1) mmol/L Calcium (8.4-10.2) mg/dL Total Bilirubin (0.2-1.3) mg/dL AST (17-59) IU/L ALT (<50) IU/L Alkaline Phosphatase (38-126) U/L NT-Pro-B Natriuret Pep (<125) pg/mL Total Protein (6.3-8.2) g/dL Albumin (3.5-5.0) g/dL Globulin (1.7-4.1) g/dL Albumin/Globulin Ratio (1.0-2.8) Procalcitonin (<0.5) ng/mL SARS-CoV-2 (PCR) (Negative) Influenza A (RT-PCR) (NEGATIVE) Influenza B (RT-PCR) (NEGATIVE) RSV (PCR) (Negative) Blood Type Antibody Screen Crossmatch Imaging Data Chest x-ray: Radiologist's Impression: Radiology report did not carry over, impression states mild chronic volume overload appearance prior CABG no pneumonia found on my evaluation, there is no focal opacities or consolidations. [facility] Narrative Medical decision making narrative: This is a 71-year-old male presents emergency department with reported ?low H&H? from the peritoneal dialysis facility where he receives his lab draws. He was sent here for blood transfusion, he was given 1 unit of packed cells with an initial H&H of 7.1 and 19.8, this came down to 6.5 and 18.3 after 1 unit of packed cells. He was given a secondary unit of blood and does not have new symptoms of shortness of breath, hypotension, bleeding, hypoxia, tachypnea or hypotension. 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 Kidneys are atrophied and most . Nonfunctional. Ascites consistent with peritoneal dialysis with peritoneal dialysis catheter in place, splenomegaly. Patient's BNP is 87 10, COVID influenza and RSV testing negative, no leukocytosis creatinine of 9.76 which is improved from his prior of 11.09, GFR 5, lactate of 2.4 Discharge Plan Departure Patient Disposition: Home Clinical Impression: Anemia Instructions: Blood Transfusion Activity Restrictions/Additional Instructions: *You have been diagnosed with needing some blood today. I am sorry for this detour of your plans, I hope that you start feeling better and we are here for you if you need to come back and receive transfusion again. Please use your dialysate to pull extra fluid off since you have symptoms of fluid overload today and received volume in addition to your normal intake. I hope you have a nice weekend. Please come back for weakness, for bleeding, for pain or other symptoms making you ill. No concerning findings of bleeding today, your blood counts remain low, they were low after you receive your blood transfusion. *What to do: *Please continue to take your regular medications as directed. [ ] New medication prescriptions sent to your pharmacy: [ ] [ ] New medication written as a paper prescription [x ] No new medications given *Please follow up with your primary care provider in 2-3 days, call for an appointment. Let them know you were seen in the Emergency Department and that we asked that you be seen for follow-up. We will electronically transmit a record of today's note if your PCP is in our system *If you do not have a primary care provider please contact [phone] to establish care with one of the [facility] primary care providers. *Return to Emergency Department if you should have any new, worsening, or concerning symptoms, such as [fever greater than 101F, chills, worsening pain, persistent vomiting or other bothersome symptoms]. Prescriptions: No Action calcitriol 0.25 mcg capsule 0.25 mcg PO Label Comments: TAKE 1 CAPSULE BY MOUTH EVERY DAY aspirin 325 mg tablet 325 mg PO DAILY sevelamer carbonate 800 mg tablet 800 mg PO .COMPLEX Rx Instructions: 800 mg orally; must administer with a meal/food Three tabs in AM Two tabs in PM (if snack) WesTab (Lactose Free) PO amlodipine 10 mg tablet 10 mg PO DAILY Qty: 90 3RF atorvastatin 40 mg tablet 40 mg PO BEDTIME Qty: 90 3RF carvedilol 25 mg tablet 25 mg PO BID Qty: 180 3RF Rx Instructions: must administer with a meal/food clopidogrel 75 mg tablet 75 mg PO DAILY Qty: 90 3RF isosorbide mononitrate 60 mg tablet extended release 24 hr 60 mg PO DAILY Qty: 90 3RF pantoprazole 40 mg tablet,delayed release (DR/EC) 40 mg PO DAILY Qty: 90 3RF zolpidem 5 mg tablet 5 mg PO BEDTIME PRN (Reason: insomnia) Qty: 30 2RF Referrals: Lei Newman, [Primary Care Provider] -
[2022-09-21 15:00] LABS: Add Manual Diff / Slide Review NO; Basophils Absolute Auto 100 /uL (0-100); Basophils Percent Auto 0.9 % (0-2); Eosinophils Absolute Auto 300 /uL (0-450); Eosinophils Percent Auto 4.1 % (2-4); Hemoglobin 7.1 g/dL (13.5-17.5); Lymphocytes Absolute Auto 1000 /uL (1100-4500); Lymphocytes Percent Auto 14.5 % (25-40); Mean Corpuscular HGB Conc 35.6 % (30-36); Mean Corpuscular Hemoglobin 35.8 PG (26-34); Mean Corpuscular Volume 100.5 fL (80-100); Monocytes Absolute Auto 400 /uL (0-900); Monocytes Percent Auto 5.4 % (3-14); Neutrophils Absolute Auto 5400 /uL (1500-7000); Neutrophils Percent Auto 75.1 % (50-75); Platelet Count 220 X10^3/uL (150-400); Red Blood Cell Count 1.97 X10^6/uL (4.5-5.9); Red Cell Distribution Width 13.6 % (11.6-14.8); White Blood Cell Count 7.2 X10^3/uL (4.5-11.0)
[2022-09-21 15:12] LABS: Hematocrit 19.8 % (41-53)
[2022-09-21 15:21] LABS: Alanine Aminotransferase 17 IU/L (<50); Albumin 3.4 g/dL (3.5-5.0); Albumin Globulin Ratio 1.1 (1.0-2.8); Alkaline Phosphatase 93 U/L (38-126); Aspartate Aminotransferase 18 IU/L (17-59); BUN Creatinine Ratio 5.1 (6-22); Bilirubin Total 0.3 mg/dL (0.2-1.3); Blood Urea Nitrogen 50 mg/dL (9-20); Calcium 8.3 mg/dL (8.4-10.2); Carbon Dioxide 27 mmol/L (22-32); Chloride 90 mmol/L (98-107); Estimated Glomerular Filt Rate 5 mL/min (>60); Glucose 129 mg/dL (80-110); HEMOLYSIS < 15 (0-50); Lactate (Lactic Acid) 2.4 mmol/L (0.7-2.1); Sodium 131 mmol/L (137-145); Total Protein 6.4 g/dL (6.3-8.2)
[2022-09-21 15:28] LABS: NT-proBNP (BNP-Adult 18+) 8710 pg/mL (<125)
[2022-09-21 15:35] LABS: Procalcitonin 0.43 ng/mL (<0.5)
[2022-09-21 15:52] LABS: Influenza A - CEPHEID Flu A NEGATIVE (NEGATIVE); Influenza B - CEPHEID Flu B NEGATIVE (NEGATIVE); Respiratory Syncytial Virus Negative (Negative)
[2022-09-21 15:54] LABS: COVID-19 CEPHEID 4-PLEX PCR Negative (Negative)
[2022-09-21 16:48] LABS: Reflexed Lactate in 2 Hours Y
[2022-09-21 19:12] LABS: Hematocrit 18.8 % (41-53); Hemoglobin 6.7 g/dL (13.5-17.5)
[2022-09-21 19:29] LABS: Hematocrit 18.3 % (41-53); Hemoglobin 6.5 g/dL (13.5-17.5)
--- NOTE | 2022-09-21 19:29 | ED.CALLS ---
Hct = 18.3 Hgb = 6.5 notified
== END 2022-09-21 21:19 | disposition home or self-care (01) ==
PROVIDERS: Nurse Practitioner Critical Care Medicine; Emergency Provider Emergency Medicine; PCP Family Medicine
DX: D64.9 Anemia, unspecified (principal); R18.8 Other ascites
CPT/HCPCS: 0241U; 36415; 36430; 71045; 80053; 83605; 83880; 84145; 85014; 85018; 85025; 86850; 86900; 86901; 99284; P9016

== ENCOUNTER → 2022-09-27 12:20 | Outpatient (CLI) | payer MEDICARE, OTHER, SELFPAY ==
[2022-09-27 14:36] LABS: Add Manual Diff / Slide Review NO; Basophils Absolute Auto 100 /uL (0-100); Basophils Percent Auto 0.7 % (0-2); Eosinophils Absolute Auto 200 /uL (0-450); Eosinophils Percent Auto 2.3 % (2-4); Hematocrit 25.6 % (41-53); Hemoglobin 9.2 g/dL (13.5-17.5); Lymphocytes Absolute Auto 900 /uL (1100-4500); Lymphocytes Percent Auto 11.2 % (25-40); Mean Corpuscular HGB Conc 35.8 % (30-36); Mean Corpuscular Hemoglobin 34.8 PG (26-34); Mean Corpuscular Volume 97.2 fL (80-100); Monocytes Absolute Auto 600 /uL (0-900); Monocytes Percent Auto 6.7 % (3-14); Neutrophils Absolute Auto 6700 /uL (1500-7000); Neutrophils Percent Auto 79.1 % (50-75); Platelet Count 175 X10^3/uL (150-400); Red Blood Cell Count 2.63 X10^6/uL (4.5-5.9); Red Cell Distribution Width 15.6 % (11.6-14.8); White Blood Cell Count 8.5 X10^3/uL (4.5-11.0)
[2022-09-27 15:35] LABS: HEMOLYSIS < 15 (0-50); Iron 92 ug/dL (49-181)
[2022-09-27 15:45] LABS: Percent Iron Saturation 44 % (20-50); Total Iron Binding Capacity 210 ug/dL (261-462); Transferrin 161 mg/dL (206-381)
[2022-09-27 16:27] LABS: Vitamin B12 977 pg/mL (239-931)
== END ==
PROVIDERS: PCP Family Medicine; Referring Provider Family Medicine; Visit Provider Family Medicine
DX: D64.9 Anemia, unspecified (principal)
CPT/HCPCS: 36415; 82607; 83540; 83550; 85025

== ENCOUNTER 2022-10-16 11:29 | Emergency (ER) | payer MEDICARE, OTHER, SELFPAY ==
[2022-10-16] VITALS (9 sets, daily range): BP systolic 82–118; BP diastolic 47–57; PULSE 68–74; RESP 16–24; TEMP 36.6; O2SAT 83–98
--- NOTE | 2022-10-16 11:47 | ED.GENADULT ---
HPI - General Adult General Chief complaint: Fever Stated complaint: Sepsis/ Hypotensive/Perineal Inf Time Seen by Provider: 10/16/22 11:47 History of Present Illness HPI narrative: 72-year-old gentleman currently on peritoneal dialysis for end-stage renal failure, chronic anemia, coronary artery disease post bypass, hypertension, hyperlipidemia presents with his home health nurse concerned with a measured blood pressure of 70. Reportedly has a peritoneal infection and was given vanco with his most recent dialysis. Home health has been coming out. Patient reports that he is increasingly weak but no specific pain complaints. Specifically, he is not complaining of abdominal pain. Medical records including recent family practice visits as well as ER visits are reviewed. He is followed by Dr. Wei, nephrology and notes relating to the peritoneal infection as well as dialysis dosing are not immediately available. Will do what I can to see if we can access those and will talk to Nephrology. Related Data Home Medications Medication Instructions Recorded Confirmed WesTab (Lactose Free) PO 07/27/22 09/27/22 aspirin 325 mg tablet 325 mg PO DAILY 07/27/22 10/16/22 calcitriol 0.25 mcg capsule 0.25 mcg PO DAILY 07/27/22 10/16/22 sevelamer carbonate 800 mg tablet 800 mg PO .COMPLEX 07/27/22 10/16/22 calcium acetate(phosphat bind) 667 667 mg PO ONCE 09/27/22 10/16/22 mg capsule lisinopril 5 mg tablet 5 mg PO DAILY 10/16/22 10/16/22 Previous Rx's Medication Instructions Recorded amlodipine 10 mg tablet 10 mg PO DAILY #90 tabs 07/27/22 atorvastatin 40 mg tablet 40 mg PO BEDTIME #90 tabs 07/27/22 carvedilol 25 mg tablet 25 mg PO BID #180 tabs 07/27/22 clopidogrel 75 mg tablet 75 mg PO DAILY #90 tabs 07/27/22 pantoprazole 40 mg tablet,delayed 40 mg PO DAILY #90 tabs 07/27/22 release zolpidem 5 mg tablet 5 mg PO BEDTIME PRN insomnia #30 07/27/22 tabs isosorbide mononitrate 60 mg 60 mg PO DAILY #90 tabs 09/28/22 tablet,extended release 24 hr Allergies Allergy/AdvReac Type Severity Reaction Status Date / Time No Known Drug Allergies Allergy Verified 10/16/22 13:22 Review of Systems Review of Systems Narrative: Pertinent positive and negative findings as per HPI Patient History Medical History Abdominal aneurysm without mention of rupture (~2017) Anemia (~2021) CAD (coronary artery disease) GERD (gastroesophageal reflux disease) Hearing loss (~1999) Heart failure (~2017) History of kidney disease (~2020) Hyperlipidemia Hypertension Insomnia Renal failure (~2020) Stroke (~2018) Surgical History (Updated 09/26/22 @ 22:27 by Angelica Segura) AAA (abdominal aortic aneurysm) (~02/2022) Anesthesia History of bladder surgery (~1999) History of heart surgery (~06/2018) Family History (Updated 09/26/22 @ 22:28 by Angelica Segura) Mother Cancer Brother Mental health problem Grandfather Cancer Social History Smoking Status: Current every day smoker Smoking Status: Current every day smoker tobacco type: cigarettes alcohol intake frequency: holidays/special occasions only Substance Use Type: does not use Exam Initial Vital Signs Initial Vital Signs: Vital Signs Pulse Rate 71 10/16/22 11:33 Pulse Oximetry 83 L 10/16/22 11:33 General: Chronically ill-appearing, weak, able to participate partially with exam significant cognitive deficits HEENT: Moist mucous membranes, normal sclera with reactive pupils, Neck: +JVD, supple Respiratory: Lungs are clear to auscultation, no wheezing no rales no rhonchi. Full and symmetrical air movement Cardiac: Regular rate and rhythm no murmurs no bruits Abdomen: Soft, nontender with peritoneal dialysis catheter in place. There is no rebound and no guarding Skin: Somewhat pale but otherwise Warm and dry, no rashes Neurologic: Globally weak, Grossly neurologically intact with no obvious asymmetries or abnormalities Extremities: No trauma, well perfused Psych: Cooperative, poor overall insight Course Orders Ordered: ED Orders 10/16/22 11:55 XR chest 1V Stat 10/16/22 11:56 EKG-12 Lead Stat 10/16/22 12:00 Blood Culture Stat Body Fluid Culture Stat Complete Blood Count AUTO DIFF Stat Comprehensive Metabolic Panel Stat Lactate (Lactic Acid) Stat Magnesium Stat 10/16/22 12:30 Covid-19 + FLU A/B + RSV - PCR Stat Discontinued Medications Potassium Chloride (Potassium Chloride 20 Meq Tab) 40 meq PO NOW ONE Stop: 10/16/22 13:01 Last Admin: 10/16/22 13:32 Dose: 40 meq Documented By: CHRIS Vital Signs Vital signs: Vital Signs - 8 hr 10/16/22 11:50 10/16/22 11:33 10/16/22 11:34 Temperature 98 F Pulse Rate 74 71 Respiratory Rate 17 Blood Pressure 118/56 L 118/56 L Pulse Oximetry 98 83 L Oxygen Delivery Method Room Air 10/16/22 11:57 10/16/22 11:57 10/16/22 12:00 Temperature Pulse Rate 74 Respiratory Rate Blood Pressure 94/53 L 82/47 L Pulse Oximetry 97 Oxygen Delivery Method 10/16/22 12:00 10/16/22 12:05 10/16/22 12:05 Temperature Pulse Rate 74 74 Respiratory Rate 24 Blood Pressure 104/55 L Pulse Oximetry 96 96 Oxygen Delivery Method 10/16/22 12:30 10/16/22 12:30 10/16/22 13:00 Temperature Pulse Rate 73 Respiratory Rate Blood Pressure 97/50 L 102/57 L Pulse Oximetry 94 Oxygen Delivery Method 10/16/22 13:00 10/16/22 13:30 10/16/22 13:30 Temperature Pulse Rate 71 68 Respiratory Rate 16 Blood Pressure 107/52 L Pulse Oximetry 98 96 Oxygen Delivery Method Room Air Medical Decision Making Lab Data Result diagrams: 10/16/22 12:00 10/16/22 12:00 Labs: Lab Results 10/16/22 10/16/22 10/16/22 Range/Units 12:00 12:00 12:00 WBC 6.2 (4.5-11.0) X10^3/uL RBC 2.32 L (4.5-5.9) X10^6/uL Hgb 7.7 L (13.5-17.5) g/dL Hct 22.9 L (41-53) % MCV 98.7 (80-100) fL MCH 33.2 (26-34) PG MCHC 33.7 (30-36) % RDW 15.6 H (11.6-14.8) % Plt Count 208 (150-400) X10^3/uL Neut % (Auto) 86.2 H (50-75) % Lymph % (Auto) 7.1 L (25-40) % [place] % (Auto) 5.7 (3-14) % Eos % (Auto) 0.6 L (2-4) % Baso % (Auto) 0.4 (0-2) % Neut # (Auto) 5400 (7821-7438) /uL Lymph # (Auto) 400 L (5311-8642) /uL [place] # (Auto) 400 (0-900) /uL Eos # (Auto) 0 (0-450) /uL Baso # (Auto) 0 (0-100) /uL Sodium 130 L (137-145) mmol/L Potassium 2.9 L (3.4-5.1) mmol/L Chloride 89 L (98-107) mmol/L Carbon Dioxide 27 (22-32) mmol/L BUN 54 H (9-20) mg/dL Creatinine 9.66 H* (0.66-1.25) mg/dL Estimated GFR 5 L (>60) mL/min BUN/Creatinine Ratio 5.6 L (6-22) Glucose 164 H (80-110) mg/dL Lactate 1.9 (0.7-2.1) mmol/L Calcium 7.2 L (8.4-10.2) mg/dL Magnesium (1.6-2.3) mg/dL Total Bilirubin 0.4 (0.2-1.3) mg/dL AST 18 (17-59) IU/L ALT 14 (<50) IU/L Alkaline Phosphatase 63 (38-126) U/L Total Protein 5.2 L (6.3-8.2) g/dL Albumin 2.4 L (3.5-5.0) g/dL Globulin 2.8 (1.7-4.1) g/dL Albumin/Globulin Ratio 0.9 L (1.0-2.8) SARS-CoV-2 (PCR) (Negative) Influenza A (RT-PCR) (NEGATIVE) Influenza B (RT-PCR) (NEGATIVE) RSV (PCR) (Negative) 10/16/22 10/16/22 Range/Units 12:00 12:30 WBC (4.5-11.0) X10^3/uL RBC (4.5-5.9) X10^6/uL Hgb (13.5-17.5) g/dL Hct (41-53) % MCV (80-100) fL MCH (26-34) PG MCHC (30-36) % RDW (11.6-14.8) % Plt Count (150-400) X10^3/uL Neut % (Auto) (50-75) % Lymph % (Auto) (25-40) % [place] % (Auto) (3-14) % Eos % (Auto) (2-4) % Baso % (Auto) (0-2) % Neut # (Auto) (9725-8058) /uL Lymph # (Auto) (1361-3367) /uL [place] # (Auto) (0-900) /uL Eos # (Auto) (0-450) /uL Baso # (Auto) (0-100) /uL Sodium (137-145) mmol/L Potassium (3.4-5.1) mmol/L Chloride (98-107) mmol/L Carbon Dioxide (22-32) mmol/L BUN (9-20) mg/dL Creatinine (0.66-1.25) mg/dL Estimated GFR (>60) mL/min BUN/Creatinine Ratio (6-22) Glucose (80-110) mg/dL Lactate (0.7-2.1) mmol/L Calcium (8.4-10.2) mg/dL Magnesium 1.3 L (1.6-2.3) mg/dL Total Bilirubin (0.2-1.3) mg/dL AST (17-59) IU/L ALT (<50) IU/L Alkaline Phosphatase (38-126) U/L Total Protein (6.3-8.2) g/dL Albumin (3.5-5.0) g/dL Globulin (1.7-4.1) g/dL Albumin/Globulin Ratio (1.0-2.8) SARS-CoV-2 (PCR) Negative (Negative) Influenza A (RT-PCR) Flu a negative (NEGATIVE) Influenza B (RT-PCR) Flu b negative (NEGATIVE) RSV (PCR) Negative (Negative) Imaging Data Chest x-ray: Radiologist's Impression: FINDINGS:? ? Surgical changes and devices:? Sternotomy and CABG.? ? Lungs and pleura:? Lungs are clear.? No pleural effusions or pneumothorax.? ? Mediastinum:? Mediastinal contours appear normal.? Heart size is normal.? ? Bones and chest wall:? No suspicious bony lesions.? Overlying soft tissues appear unremarkable.? ? IMPRESSION:? No acute cardiopulmonary disease. ? ? Dictated by: Darryl Palomino M.D. on 10/16/2022 at 12:58? ECG Data Interpretation: Sinus rhythm at a rate of 68 Incomplete R bundle branch block No acute ischemic changes Independently interpreted by me MDM Narrative Medical decision making narrative: 72-year-old gentleman currently on peritoneal dialysis followed closely by Dr. Collado concerns yesterday with home health nurses wondering if his peritoneal dialysis bags were bit more cloudy than they should be. Cultures were sent but are not yet back and he was empirically started on vancomycin every 3 days and ceftazidime daily with continued peritoneal dialysis. Home health nurses noted a low blood pressure at home and brought him in for further evaluation. Patient is slightly more confused but otherwise clinically stable with initial blood pressure in the emergency department at 118/56. He is not tachycardic, not febrile and does not have a tender abdomen. History is augmented by talking home health care, dialysis nurse and with Dr. Collado as well as patient and his . Differential includes spontaneous back to serial peritonitis, alternate source of infection with developing sepsis, hypertension, hyperlipidemia, In discussion with Dr. Collado, there is a concern for worsening kidney failure and possible need to transfer from peritoneal to hemodialysis in the coming weeks. We reviewed a normal lactic, normal white blood cell count benign exam and reassuring vitals and he suggested that home discharge would be appropriate. Patient also was noted to have a low potassium at 2.[address] Wei called back shortly after initial conversation. He is spoken with his home health care nurse who was concerned that the patient and his are putting him at risk by not being fully trained on how to proceed with peritoneal dialysis. She believes that he needs to be in the hospital. Unfortunately there are currently no hospital beds at [facility]. Dr. Collado is going to talk with the nurses as well as [facility] to see what additional options we might have. I believe we do not have peritoneal dialysis supplies at [facility] [address] Dr. Collado has arranged for dialysis nurse to visit the patient this evening to set him up for home peritoneal dialysis overnight. He strongly suggests that if there are worsening signs symptoms or new findings that the patient present to [facility] rather than [facility] to better facilitate nephrology consultation and inpatient care if required. He will follow-up with patient per phone to discuss additional workup regarding moving to hemodialysis from peritoneal dialysis. Antibiotics through the dialysis center will continue Discharge Plan Departure Patient Disposition: Home Clinical Impression: Inadequate peritoneal dialysis, Acute hypotension, Hypokalemia, Anemia in chronic kidney disease Instructions: DI for Dialysis Activity Restrictions/Additional Instructions: Thank you for coming in today Fortunately, with a small amount of IV fluid, your blood pressures have normalized nicely. With your workup in the emergency department is quite reassuring. There is no evidence of severe infection including sepsis. You are appropriately on antibiotics including vancomycin and ceftazidime through the dialysis center. I have spoken with Dr. Collado, your manager diesel. At this time, we both agree that it is safe for you to go home. The home dialysis nurse will be out this afternoon to set you up for tonight's evening dialysis. Dr. Collado will be in contact with you for follow-up appointments to discuss future dialysis and if you need to move toward hemodialysis and away from your current peritoneal dialysis. Your potassium was slightly low in the emergency department and you were given oral potassium after consultation with Dr. Collado. If you find that you are getting worse or develop any new symptoms, please feel free to return to the emergency department for further evaluation. When considering which emergency department to go to, [facility]. I strongly recommend that you go to [facility] Emergency Department so that they can coordinate in real-time with your manager diesel and help if dialysis is required. Prescriptions: No Action isosorbide mononitrate 60 mg tablet extended release 24 hr 60 mg PO DAILY Qty: 90 3RF calcitriol 0.25 mcg capsule 0.25 mcg PO DAILY Label Comments: TAKE 1 CAPSULE BY MOUTH EVERY DAY aspirin 325 mg tablet 325 mg PO DAILY sevelamer carbonate 800 mg tablet 800 mg PO .COMPLEX Rx Instructions: 800 mg orally; must administer with a meal/food Three tabs in AM Two tabs in PM (if snack) WesTab (Lactose Free) PO amlodipine 10 mg tablet 10 mg PO DAILY Qty: 90 3RF atorvastatin 40 mg tablet 40 mg PO BEDTIME Qty: 90 3RF carvedilol 25 mg tablet 25 mg PO BID Qty: 180 3RF Rx Instructions: must administer with a meal/food clopidogrel 75 mg tablet 75 mg PO DAILY Qty: 90 3RF pantoprazole 40 mg tablet,delayed release (DR/EC) 40 mg PO DAILY Qty: 90 3RF zolpidem 5 mg tablet 5 mg PO BEDTIME PRN (Reason: insomnia) Qty: 30 2RF calcium acetate(phosphat bind) 667 mg capsule 667 mg PO ONCE Label Comments: TAKE 1 CAPSULE BY MOUTH THREE TIMES DAILY WITH MEALS lisinopril 5 mg tablet 5 mg PO DAILY Label Comments: Take 1 tablet by mouth once a day starting 10/10 Referrals: Lei Newman DO [Primary Care Provider] - Stand Alone Forms: Patient Portal/API
--- NOTE | 2022-10-16 11:55 | DI.RAD.S_ITS ---
PROCEDURE: XR CHEST 1V INDICATIONS: weakness, peritoneal dialysis, ? SBP TECHNIQUE: One view of the chest was acquired. COMPARISON: [facility], CR, XR CHEST 1 VIEW, 10/15/2022, 13:15. [facility], CR, XR CHEST 1V, 07/21/2022, 14:13. [facility], CR, XR CHEST 1V, 09/21/2022, 15:03. FINDINGS: Surgical changes and devices: Sternotomy and CABG. Lungs and pleura: Lungs are clear. No pleural effusions or pneumothorax. Mediastinum: Mediastinal contours appear normal. Heart size is normal. Bones and chest wall: No suspicious bony lesions. Overlying soft tissues appear unremarkable. IMPRESSION: No acute cardiopulmonary disease. Dictated by: Darryl Palomino M.D. on 10/16/2022 at 12:58 Approved by: Darryl Palomino M.D. on 10/16/2022 at 13:00
--- NOTE | 2022-10-16 11:58 | PC.NURSE ---
Per report from peritoneal dialysis nurse, pt received 2g Fortaz today via peritoneal dialysis appointment. Received 1500mg Vanco and 2g Fortaz yesterday also.
[2022-10-16 12:17] LABS: Add Manual Diff / Slide Review NO; Basophils Absolute Auto 0 /uL (0-100); Basophils Percent Auto 0.4 % (0-2); Eosinophils Absolute Auto 0 /uL (0-450); Eosinophils Percent Auto 0.6 % (2-4); Hematocrit 22.9 % (41-53); Hemoglobin 7.7 g/dL (13.5-17.5); Lymphocytes Absolute Auto 400 /uL (1100-4500); Lymphocytes Percent Auto 7.1 % (25-40); Mean Corpuscular HGB Conc 33.7 % (30-36); Mean Corpuscular Hemoglobin 33.2 PG (26-34); Mean Corpuscular Volume 98.7 fL (80-100); Monocytes Absolute Auto 400 /uL (0-900); Monocytes Percent Auto 5.7 % (3-14); Neutrophils Absolute Auto 5400 /uL (1500-7000); Neutrophils Percent Auto 86.2 % (50-75); Platelet Count 208 X10^3/uL (150-400); Red Blood Cell Count 2.32 X10^6/uL (4.5-5.9); Red Cell Distribution Width 15.6 % (11.6-14.8); White Blood Cell Count 6.2 X10^3/uL (4.5-11.0)
--- NOTE | 2022-10-16 12:25 | PC.NURSE ---
Peritoneal dialysis patient with cloudy fluid, on vancomycin to treat infection since yesterday.
[2022-10-16 12:28] LABS: Alanine Aminotransferase 14 IU/L (<50); Albumin 2.4 g/dL (3.5-5.0); Albumin Globulin Ratio 0.9 (1.0-2.8); Alkaline Phosphatase 63 U/L (38-126); Aspartate Aminotransferase 18 IU/L (17-59); BUN Creatinine Ratio 5.6 (6-22); Bilirubin Total 0.4 mg/dL (0.2-1.3); Blood Urea Nitrogen 54 mg/dL (9-20); Calcium 7.2 mg/dL (8.4-10.2); Carbon Dioxide 27 mmol/L (22-32); Chloride 89 mmol/L (98-107); Estimated Glomerular Filt Rate 5 mL/min (>60); Globulin 2.8 g/dL (1.7-4.1); Glucose 164 mg/dL (80-110); HEMOLYSIS < 15 (0-50); Lactate (Lactic Acid) 1.9 mmol/L (0.7-2.1); Magnesium 1.3 mg/dL (1.6-2.3); Potassium 2.9 mmol/L (3.4-5.1); Sodium 130 mmol/L (137-145); Total Protein 5.2 g/dL (6.3-8.2)
[2022-10-16] MEDS: POTASSIUM CHLORIDE 20 MEQ TAB 40 MEQ PO (13:32)
[2022-10-16 13:50] LABS: Influenza A - CEPHEID Flu A NEGATIVE (NEGATIVE); Influenza B - CEPHEID Flu B NEGATIVE (NEGATIVE); Respiratory Syncytial Virus Negative (Negative)
[2022-10-16 13:55] LABS: COVID-19 CEPHEID 4-PLEX PCR Negative (Negative)
== END 2022-10-16 14:18 | disposition home or self-care (01) ==
PROVIDERS: Emergency Provider Emergency Medicine; PCP Family Medicine
DX: E87.6 Hypokalemia (principal); I95.9 Hypotension, unspecified; N18.9 Chronic kidney disease, unspecified; D63.1 Anemia in chronic kidney disease; Z20.822 Contact with and (suspected) exposure to COVID-19; Z99.2 Dependence on renal dialysis; Z79.899 Other long term (current) drug therapy
CPT/HCPCS: 0241U; 36415; 71045; 80053; 83605; 83735; 85025; 87040; 87070; 87075; 87205; 93005; 99284

== ENCOUNTER → 2022-11-05 09:13 | Outpatient (CLI) | payer MEDICARE, OTHER, SELFPAY ==
[2022-11-05 10:20] LABS: Hemoglobin A1C% w Est Avg Glu 4.7 % (4.0-6.0)
[2022-11-05 10:46] LABS: Cholesterol 90 mg/dL (140-199); HDL Cholesterol 36 mg/dL (40-60); LDL Cholesterol Calculated 40 mg/dL (<100); Triglycerides 68 mg/dL (35-150)
[2022-11-05 11:07] LABS: Thyroid Stimulating Hormone 2.13 uIU/mL (0.47-4.68)
[2022-11-05 11:14] LABS: Free T4, Direct Thyroxine 1.44 ng/dL (0.78-2.19)
== END ==
PROVIDERS: PCP Family Medicine; Referring Provider Internal Medicine Cardiovascular Disease; Visit Provider Internal Medicine Cardiovascular Disease
DX: Z86.39 Personal history of other endocrine, nutritional and metabolic disease (principal); E78.5 Hyperlipidemia, unspecified; Z13.29 Encounter for screening for other suspected endocrine disorder
CPT/HCPCS: 36415; 80061; 83036; 84439; 84443

== ENCOUNTER → 2022-11-19 09:08 | Outpatient (CLI) | payer MEDICARE, OTHER, SELFPAY ==
--- NOTE | 2022-11-19 09:10 | DI.ECHO.S_ITS ---
[facility] +---------+ : : [address] [place] : : : : [id number] : : : : Phone: [phone] Echocardiogram Report + + :Name: ZAIRA CANTRELL Study Date: 11/19/2022 Height: 68 in : :[facility] ReadingLocation: Weight: 173 lb : : Gender: Male BSA: 1.9 m2 : :: 1950 Age: 72 yrs BP: 160/68 mmHg: :Reason For Study: Coronary artery disease : :Ordering Physician: Raquel : :Swapna Performed By: Thalia Sunshine : :Referring: RAQUEL BARCENAS E : + + Interpretation Summary There is moderate concentric left ventricular hypertrophy. The ejection fraction is estimated to be 55-60%. Diastolic parameters suggest probable elevated filling pressures. The left atrium is moderately dilated. The right ventricle is not well visualized. Right ventricular systolic function is mildly reduced. There is mild mitral regurgitation. There is mild tricuspid regurgitation. The right ventricular systolic pressure is estimated to be at least 29 mmHg based on an estimated right atrial pressure of 8 mm Hg. Procedure: A two-dimensional transthoracic echocardiogram with color flow and Doppler was performed. The study quality was technically adequate. The patient was in sinus rhythm with heart rates between 60-65 bpm during the exam. Left Ventricle: The left ventricle is normal in size. There is moderate concentric left ventricular hypertrophy. The ejection fraction is estimated to be 55-60%. Diastolic parameters suggest probable elevated filling pressures. Right Ventricle: The right ventricle is not well visualized. The right ventricle is mildly dilated. Right ventricular systolic function is mildly reduced. Atria: The left atrium is moderately dilated. The right atrium is normal in size. There is no Doppler evidence for an interatrial shunt. Mitral Valve: The mitral valve is normal in structure and function. There is mild mitral regurgitation. The mitral regurgitant jet is eccentrically directed. Aortic Valve: The aortic valve is trileaflet. The aortic valve is mildly calcified. There is no hemodynamically significant valvular aortic stenosis. There is trace aortic regurgitation. Tricuspid Valve: The tricuspid valve is normal in structure and function. There is mild tricuspid regurgitation. The right ventricular systolic pressure is estimated to be at least 29 mmHg based on an estimated right atrial pressure of 8 mm Hg. Pulmonic Valve: The pulmonic valve leaflets are thin and pliable; valve motion is normal. There is a trace or physiologic amount of pulmonic regurgitation. Great Vessels: The ascending aorta is at the upper limits of normal in size. The IVC is dilated (diameter is greater than 2.1 cm) yet it collapses greater than 50% with a sniff. This suggests a right atrial pressure of 8 mm Hg. Pericardium/ Pleura There is no pericardial effusion. There is no pleural effusion. MMode/2D Measurements & Calculations LVIDd: 4.2 cm LVOT diam: 2.1 cm LVIDs: 2.8 cm Ao root diam: 3.8 cm FS: 33.3 % asc Aorta Diam: 3.5 cm EPSS: 0.50 cm IVSd: 1.5 cm LVPWd: 1.3 cm LV galan. diameter/BSA (cm/m^2): 2.2 LV sys. diameter/BSA (cm/m^2): 1.5 LA dimension: 3.3 cm RA long axis: 4.6 cm LA A2 area: 17.4 cm2 RA area: 16.0 cm2 LA A4 area: 18.3 cm2 RA vol: 46.9 ml LA length (vol): 4.5 cm RA : 24.4 ml/m2 LA vol: 59.4 ml IVC diam: 2.2 cm LA vol index: 30.9 ml/m2 RVD1 (basal): 5.0 cm LVLs ap4: 6.2 cm RVD2 (mid): 3.9 cm LVLd ap2: 8.5 cm TAPSE_phl: 1.5 cm LVLs ap2: 6.8 cm Doppler Measurements & Calculations Ao V2 max: 105.0 cm/sec LVOT Max Edgard: 85.5 cm/sec Ao V2 mean: 73.7 cm/sec LV V1 max P.9 mmHg Ao max P.0 mmHg LV V1 VTI: 21.5 cm Ao mean P.[address](I,D): 2.9 cm2 Ao V2 VTI: 25.[address](V,D): 2.8 cm2 sev ratio: 0.[address] indexed to BSA (cm^2/m^2): 1.5 MV E max edgard: 82.3 cm/sec TR max edgard: 232.0 cm/sec MV A max edgard: 99.0 cm/sec TR max P.5 mmHg MV E/A: 0.83 PA V2 max: 78.6 cm/sec Med Peak E' Edgard: 3.9 cm/sec PA V2 mean: 49.8 cm/sec E/E' med: 21.3 PA mean P.0 mmHg Lat Peak E' Edgard: 4.3 cm/sec E/E' lat: 19.4 E/e' average: 20.3 MV dec time: 0.26 sec MVA(VTI): 2.5 cm2 MV V2 mean: 60.3 cm/sec SV(LVOT): 74.5 ml MV mean P.0 mmHg MV V2 VTI: 29.7 cm AV VR_phl: 0.81 AVE(VTI)/BSA_phl: 1.5 Reading Physician:01:11 PM
== END ==
PROVIDERS: PCP Family Medicine; Referring Provider Internal Medicine Cardiovascular Disease; Visit Provider Internal Medicine Cardiovascular Disease
DX: I25.10 Atherosclerotic heart disease of native coronary artery without angina pectoris (principal); I08.1 Rheumatic disorders of both mitral and tricuspid valves
CPT/HCPCS: 93306

== ENCOUNTER → 2022-11-30 11:34 | Outpatient (CLI) | payer MEDICARE, OTHER, SELFPAY ==
[2022-11-30 12:47] LABS: Add Manual Diff / Slide Review NO; Basophils Absolute Auto 100 /uL (0-100); Basophils Percent Auto 0.7 % (0-2); Eosinophils Absolute Auto 300 /uL (0-450); Eosinophils Percent Auto 4.3 % (2-4); Hemoglobin 10.7 g/dL (13.5-17.5); Lymphocytes Absolute Auto 900 /uL (1100-4500); Lymphocytes Percent Auto 12.3 % (25-40); Mean Corpuscular HGB Conc 34.5 % (30-36); Mean Corpuscular Hemoglobin 33.8 PG (26-34); Mean Corpuscular Volume 97.9 fL (80-100); Monocytes Absolute Auto 400 /uL (0-900); Monocytes Percent Auto 5.6 % (3-14); Neutrophils Absolute Auto 5700 /uL (1500-7000); Neutrophils Percent Auto 77.1 % (50-75); Platelet Count 155 X10^3/uL (150-400); Red Blood Cell Count 3.16 X10^6/uL (4.5-5.9); Red Cell Distribution Width 15.6 % (11.6-14.8); White Blood Cell Count 7.5 X10^3/uL (4.5-11.0)
[2022-11-30 13:08] LABS: HEMOLYSIS < 15 (0-50); Iron 94 ug/dL (49-181)
[2022-11-30 13:10] LABS: Alanine Aminotransferase 13 IU/L (<50); Albumin 3.8 g/dL (3.5-5.0); Albumin Globulin Ratio 1.6 (1.0-2.8); Alkaline Phosphatase 97 U/L (38-126); Aspartate Aminotransferase 19 IU/L (17-59); BUN Creatinine Ratio 4.1 (6-22); Bilirubin Total 0.6 mg/dL (0.2-1.3); Blood Urea Nitrogen 23 mg/dL (9-20); Calcium 8.4 mg/dL (8.4-10.2); Carbon Dioxide 28 mmol/L (22-32); Chloride 93 mmol/L (98-107); Estimated Glomerular Filt Rate 10 mL/min (>60); Globulin 2.4 g/dL (1.7-4.1); Glucose 131 mg/dL (80-110); HEMOLYSIS < 15 (0-50); Potassium 4.7 mmol/L (3.4-5.1); Sodium 136 mmol/L (137-145); Total Protein 6.2 g/dL (6.3-8.2)
[2022-11-30 13:19] LABS: Percent Iron Saturation 37 % (20-50); Total Iron Binding Capacity 253 ug/dL (261-462); Transferrin 177 mg/dL (206-381)
[2022-11-30 13:44] LABS: Ferritin 479 ng/mL (18-464)
== END ==
PROVIDERS: PCP Family Medicine; Referring Provider Surgery; Visit Provider Family Medicine
DX: N18.6 End stage renal disease (principal); E78.5 Hyperlipidemia, unspecified; I10 Essential (primary) hypertension; I25.10 Atherosclerotic heart disease of native coronary artery without angina pectoris
CPT/HCPCS: 36415; 80053; 82728; 83540; 83550; 85025

== ENCOUNTER 2023-01-04 20:51 | Emergency (ER) | payer MEDICARE, OTHER, SELFPAY ==
[2023-01-04 21:23] VITALS: BP 199/95; PULSE 69; RESP 21; TEMP 36.9; O2SAT 95; BMI 26.1
--- NOTE | 2023-01-04 21:26 | ED.GENADULT ---
HPI - General Adult General Chief complaint: Fall Stated complaint: GLF, R shoulder pain, can't move, maybe thinners Time Seen by Provider: 01/04/23 20:57 History of Present Illness HPI narrative: 72-year-old male daily smoker with history of chronic kidney disease presents for evaluation of an isolated right shoulder injury. He is states he has been in his normal state of health and was leaving a restaurant with his family when he misjudged a curb and tripped and fell onto his right shoulder. He denies prodromal symptoms such as dizziness, weakness or lightheadedness. He has no chest pain or shortness of breath. Denies any fever or chills. Patient specifically denies any head neck or back pain. He did not injure his ribs and has no chest pain or shortness of breath. He denies any abdominal pain nor hip or lower extremity pain. He has no pain in his elbow or wrist on right side and complains only of right shoulder pain. He states the pain is sufficient to prevent him from lifting his arm. He denies any numbness, tingling or weakness. Related Data Home Medications Medication Instructions Recorded Confirmed sevelamer carbonate 800 mg tablet 800 mg PO .COMPLEX 07/27/22 11/29/22 calcium acetate(phosphat bind) 667 667 mg PO ONCE 09/27/22 11/29/22 mg capsule folic acid-vit B6-vit B12 2.5 1 tab PO 11/29/22 11/29/22 mg-25 mg-1 mg tablet (WesTab One) isosorbide mononitrate 30 mg 30 mg PO DAILY 11/29/22 11/29/22 tablet,extended release 24 hr Previous Rx's Medication Instructions Recorded atorvastatin 40 mg tablet 40 mg PO BEDTIME #90 tabs 07/27/22 carvedilol 25 mg tablet 25 mg PO BID #180 tabs 07/27/22 pantoprazole 40 mg tablet,delayed 40 mg PO DAILY #90 tabs 07/27/22 release zolpidem 5 mg tablet 5 mg PO BEDTIME PRN insomnia #30 10/31/22 tabs Disabled Parking Permit #1 ea 11/29/22 ferrous gluconate 324 mg (38 mg 324 mg PO DAILY #90 tabs 11/29/22 iron) tablet hydrocodone 5 mg-acetaminophen 325 1 tab PO Q4-6H PRN pain #20 tabs 01/04/23 mg tablet ondansetron 4 mg disintegrating 4 mg PO TID-QID PRN nausea and 01/04/23 tablet vomiting #10 tabs Allergies Allergy/AdvReac Type Severity Reaction Status Date / Time No Known Drug Allergies Allergy Verified 10/16/22 13:22 Review of Systems Review of Systems Narrative: GENERAL: Denies chills, fatigue, malaise, fever, sweats. HEENT: Denies sinus pain, ear pain, sore throat, difficulty swallowing, dizziness. RESPIRATORY: Denies dyspnea, cough, wheezing, hemoptysis, sputum. CARDIOVASCULAR: Denies chest pain, palpitations, orthopnea, edema, GASTROINTESTINAL: Denies nausea, vomiting, abdominal pain, diarrhea, constipation, melena. : Denies dysuria, frequency, incontinence, hematuria, urinary retention. MUSCULOSKELETAL: See HPI SKIN: Denies rash, skin lesions, or other NEUROLOGIC: Denies weakness, headache, numbness, change in speech, confusion, seizures, incoordination. PSYCHIATRIC: No concerning psychosocial issues. 12 point review of systems is negative except for those stated above Patient History Medical History Abdominal aneurysm without mention of rupture (~2017) Anemia (~2021) CAD (coronary artery disease) GERD (gastroesophageal reflux disease) Hearing loss (~1999) Heart failure (~2017) History of kidney disease (~2020) Hyperlipidemia Hypertension Insomnia Renal failure (~2020) Stroke (~2018) Surgical History AAA (abdominal aortic aneurysm) (~02/2022) Anesthesia History of bladder surgery (~1999) History of heart surgery (~06/2018) Family History Mother Cancer Brother Mental health problem Grandfather Cancer Social History Smoking Status: Current every day smoker Smoking Status: Current every day smoker tobacco type: cigarettes alcohol intake frequency: holidays/special occasions only Substance Use Type: does not use Exam Initial Vital Signs Initial Vital Signs: Vital Signs Temperature 98.4 F 01/04/23 21:23 Pulse Rate 69 01/04/23 21:23 Respiratory Rate 21 01/04/23 21:23 Blood Pressure 199/95 H 01/04/23 21:23 Pulse Oximetry 95 01/04/23 21:23 Oxygen Delivery Method Room Air 01/04/23 21:23 Procedures Orthopedic Splinting/Casting Injury #1: Side: right Upper Extremity Injury Location: shoulder Upper Extremity Immobilizer: sling/shoulder immobilizer and posterior splint (Coaptation splint) Post splinting neuro exam: intact Post splinting vascular exam: intact Placed by: Nursing Course Orders Ordered: ED Orders 01/04/23 21:34 XR shoulder RT min 2V Stat Discontinued Medications Hydrocodone Bitart/Acetaminophen (Hydrocodone/Acet 5/325 Prepack) 1 bottle MISC SEEINSTR ONE Stop: 01/04/23 22:02 Last Admin: 01/04/23 22:26 Dose: 1 bottle Documented By: AILEEN Ondansetron HCl (Ondansetron 4 Mg Odt Prepack) 1 bottle MISC SEEINSTR ONE Stop: 01/04/23 22:02 Last Admin: 01/04/23 22:26 Dose: 1 bottle Documented By: AILEEN Vital Signs Vital signs: Vital Signs - 8 hr 01/04/23 21:23 Temperature 98.4 F Pulse Rate 69 Respiratory Rate 21 Blood Pressure 199/95 H Pulse Oximetry 95 Oxygen Delivery Method Room Air Medical Decision Making [facility] Narrative Medical decision making narrative: [72] year old patient presents with mechanical ground level fall and isolated right shoulder pain Multiple etiologies for patient's symptoms considered including, but not limited to: [Fracture, dislocation versus other] Prior Charts reviewed in our EMR Primary Historian: patient Imaging reviewed: Proximal humerus fracture Patient's symptoms improved over duration of stay with above-stated therapies. Patient splinted, given pain medication, return precautions and contact information for ortho Findings and discharge diagnosis discussed with patient/family followed by verbalization of understanding Return precautions discussed with patient/family whom verbalize understanding of diagnosis and plan Discharge Plan Departure Patient Disposition: Home Clinical Impression: Fracture, humerus Instructions: How to Prevent Falls Activity Restrictions/Additional Instructions: *You have been diagnosed with [humerus fracture ] *What to do: *Please continue to take your regular medications as directed. [x ] New medication prescriptions sent to your pharmacy: [ [facility]] [ ] New medication written as a paper prescription [x] Tylenol and occasional Motrin for pain *Please follow up with [Ranjan ] of [facility] in 2-3 days, call for an appointment. Let them know you were seen in the Emergency Department and that we ask that you be seen in follow up. We will electronically transmit a record of today's note if your PCP is in our system *Return to Emergency Department if you should have any new, worsening or concerning symptoms, such as [worsening pain, significant swelling, cold extremities, numbness, tingling, weakness or other bothersome symptoms Splint Care: Keep splint clean and dry. Elevated affected body part to decrease swelling. OK to use ice pack on the affected body part. Use for 15-20 minutes each time, for 5-6x per day. If you develop worsening pain, numbness, tingling, discoloration of the affected body part, loosen the splint by loosening the ALEIDA wrap, and either see your doctor for an urgent re-assessment, or return to the Emergency Department. Return to the Emergency Department for any new or worsening symptoms. You have been prescribed a short course of narcotic medications. These are potentially dangerous and addictive medications that should be used carefully. While on these medications you cannot drive or operate heavy machinery. Additionally, you cannot sign legal documents or perform any duties such as this. Many people get constipated on narcotic medications so it would be advisable to discuss stool softeners with the pharmacist when you hand picker your prescription. Please understand that we cannot provide further refills of narcotics or controlled substances through the ED and your pain management will need to be through your Primary Care Provider Prescriptions: New hydrocodone-acetaminophen 5-325 mg tablet 1 tab PO Q4-6H PRN (Reason: pain) Qty: 20 0RF ondansetron 4 mg tablet,disintegrating 4 mg PO TID-QID PRN (Reason: nausea and vomiting) Qty: 10 0RF No Action zolpidem 5 mg tablet 5 mg PO BEDTIME PRN (Reason: insomnia) Qty: 30 2RF sevelamer carbonate 800 mg tablet 800 mg PO .COMPLEX Rx Instructions: 800 mg orally; must administer with a meal/food Three tabs in AM Two tabs in PM (if snack) atorvastatin 40 mg tablet 40 mg PO BEDTIME Qty: 90 3RF carvedilol 25 mg tablet 25 mg PO BID Qty: 180 3RF Rx Instructions: must administer with a meal/food pantoprazole 40 mg tablet,delayed release (DR/EC) 40 mg PO DAILY Qty: 90 3RF calcium acetate(phosphat bind) 667 mg capsule 667 mg PO ONCE Patient Comments: TAKE 1 CAPSULE BY MOUTH THREE TIMES DAILY WITH MEALS isosorbide mononitrate 30 mg tablet extended release 24 hr 30 mg PO DAILY WesTab One 2.5-25-1 mg tablet 1 tab PO Patient Comments: TAKE 1 TABLET BY MOUTH EVERY DAY (DME) Disabled Parking Permit See Rx Instructions .Route .MEDSUPPLY Qty: 1 0RF Rx Instructions: I find this patient to be medically disabled and qualified for Disabled Parking as indicated and signed on the Accompanying Disabled Parking Application for Individuals. ferrous gluconate 324 mg (38 mg iron) tablet 324 mg PO DAILY Qty: 90 1RF Referrals: Lei Newman DO [Primary Care Provider] - Daniel Woodruff MD [Physician] - Stand Alone Forms: Patient Portal/API
--- NOTE | 2023-01-04 21:34 | DI.RAD.S_ITS ---
PROCEDURE: XR SHOULDER RT MIN 2V INDICATIONS: fall with shoulder pain TECHNIQUE: 2 views of the shoulder were acquired. COMPARISON: None. FINDINGS: Bones: There is a comminuted fracture of the right humeral head and neck with mild impaction of the humeral shaft component. No suspicious bony lesions. Visualized ribs appear intact. Soft tissues: No suspicious soft tissue calcifications. IMPRESSION: 1. Comminuted fracture of the right humeral head and neck. Dictated by: Jean Claude Tsai M.D. on 01/04/2023 at 23:02 Approved by: Jean Claude Tsai M.D. on 01/04/2023 at 23:02
[2023-01-04] MEDS: HYDROCODONE/ACET 5/325 PREPACK 1 BOTTLE MISC (22:26)
[2023-01-04] MEDS: ONDANSETRON 4 MG ODT PREPACK 1 BOTTLE MISC (22:26)
== END 2023-01-04 22:34 | disposition home or self-care (01) ==
PROVIDERS: Emergency Provider Emergency Medicine; PCP Family Medicine
DX: S42.301A Unspecified fracture of shaft of humerus, right arm, initial encounter for closed fracture (principal); W01.0XXA Fall on same level from slipping, tripping and stumbling without subsequent striking against object, initial encounter
CPT/HCPCS: 73030; 99283

== ENCOUNTER → 2023-01-18 11:33 | Outpatient (CLI) | payer MEDICARE, OTHER, SELFPAY ==
[2023-01-18 11:46] LABS: Add Manual Diff / Slide Review NO; Basophils Absolute Auto 0 /uL (0-100); Basophils Percent Auto 0.5 % (0-2); Eosinophils Absolute Auto 200 /uL (0-450); Eosinophils Percent Auto 2.1 % (2-4); Hemoglobin 7.2 g/dL (13.5-17.5); Lymphocytes Absolute Auto 700 /uL (1100-4500); Lymphocytes Percent Auto 8.3 % (25-40); Mean Corpuscular HGB Conc 34.1 % (30-36); Mean Corpuscular Hemoglobin 33.9 PG (26-34); Mean Corpuscular Volume 99.6 fL (80-100); Monocytes Absolute Auto 500 /uL (0-900); Monocytes Percent Auto 5.9 % (3-14); Neutrophils Absolute Auto 7200 /uL (1500-7000); Neutrophils Percent Auto 83.2 % (50-75); Platelet Count 215 X10^3/uL (150-400); Red Blood Cell Count 2.11 X10^6/uL (4.5-5.9); Red Cell Distribution Width 16.1 % (11.6-14.8); White Blood Cell Count 8.6 X10^3/uL (4.5-11.0)
[2023-01-18 12:12] LABS: Alanine Aminotransferase 14 IU/L (<50); Albumin 3.5 g/dL (3.5-5.0); Albumin Globulin Ratio 1.3 (1.0-2.8); Alkaline Phosphatase 117 U/L (38-126); Aspartate Aminotransferase 20 IU/L (17-59); BUN Creatinine Ratio 8.7 (6-22); Bilirubin Total 0.8 mg/dL (0.2-1.3); Blood Urea Nitrogen 43 mg/dL (9-20); Carbon Dioxide 29 mmol/L (22-32); Chloride 95 mmol/L (98-107); Estimated Glomerular Filt Rate 12 mL/min (>60); Globulin 2.8 g/dL (1.7-4.1); Glucose 153 mg/dL (80-110); HEMOLYSIS < 15 (0-50); Potassium 5.1 mmol/L (3.4-5.1); Sodium 134 mmol/L (137-145); Total Protein 6.3 g/dL (6.3-8.2)
== END ==
PROVIDERS: PCP Family Medicine; Referring Provider Family Medicine; Visit Provider Family Medicine
DX: I10 Essential (primary) hypertension (principal); I25.10 Atherosclerotic heart disease of native coronary artery without angina pectoris
CPT/HCPCS: 36415; 80053; 85025

== ENCOUNTER → 2023-01-25 11:05 | Outpatient (CLI) | payer MEDICARE, OTHER, SELFPAY ==
[2023-01-25 14:08] LABS: Add Manual Diff / Slide Review NO; Basophils Absolute Auto 0 /uL (0-100); Basophils Percent Auto 0.8 % (0-2); Eosinophils Absolute Auto 200 /uL (0-450); Eosinophils Percent Auto 2.9 % (2-4); Lymphocytes Absolute Auto 400 /uL (1100-4500); Lymphocytes Percent Auto 6.8 % (25-40); Mean Corpuscular HGB Conc 34.2 % (30-36); Mean Corpuscular Hemoglobin 33.2 PG (26-34); Monocytes Absolute Auto 400 /uL (0-900); Monocytes Percent Auto 7.5 % (3-14); Neutrophils Absolute Auto 4700 /uL (1500-7000); Platelet Count 194 X10^3/uL (150-400); Red Blood Cell Count 2.12 X10^6/uL (4.5-5.9); Red Cell Distribution Width 15.9 % (11.6-14.8); White Blood Cell Count 5.7 X10^3/uL (4.5-11.0)
[2023-01-25 14:28] LABS: Hematocrit 20.6 % (41-53)
== END ==
PROVIDERS: PCP Family Medicine; Referring Provider Internal Medicine Nephrology; Visit Provider Internal Medicine Nephrology
DX: N18.6 End stage renal disease (principal); D63.1 Anemia in chronic kidney disease; Z99.2 Dependence on renal dialysis
CPT/HCPCS: 36415; 85025

== ENCOUNTER 2023-03-12 11:41 | Emergency (ER) | payer MEDICARE, OTHER, SELFPAY ==
[2023-03-12 11:44] VITALS: BP 181/90; PULSE 72; RESP 18; TEMP 36.9; O2SAT 97; BMI 25.8
--- NOTE | 2023-03-12 11:54 | DI.CT.S_ITS ---
PROCEDURE: CT CERVICAL SPINE WO CON INDICATIONS: Fall/pain TECHNIQUE: Noncontrast 3 mm thick sections acquired from the skull base to the T4 level. Sagittal and coronal reformats were then constructed. For radiation dose reduction, the following was used: automated exposure control, adjustment of mA and/or kV according to patient size. COMPARISON: None. FINDINGS: Image quality: Excellent. Bones: No fractures or dislocations. Straightening of normal cervical lordosis is seen. Loss of disc height, degenerative endplate changes and bilateral facet hypertrophic changes are noted at C4-5, C5-6 and C6-7 levels. Dorsal disc osteophyte complex formation at C4-5 through C6-7 levels are seen causing [id number] central canal stenosis and bilateral neural foraminal narrowing. Visualized superior ribs are intact. Soft tissues: Prevertebral soft tissues are normal in thickness. No paravertebral hematomas. No apical pneumothoraces. IMPRESSION: 1. No acute cervical spine fracture or dislocation. 2. Degenerative disc disease throughout cervical spine most notably in mid to lower cervical spine as above. Dictated by: Zion Phan M.D. on 03/12/2023 at 12:36 Approved by: Zion Phan M.D. on 03/12/2023 at 12:37
--- NOTE | 2023-03-12 11:54 | DI.CT.S_ITS ---
PROCEDURE: CT HEAD/BRAIN WO CON INDICATIONS: Fall/pain TECHNIQUE: Noncontrast 4.5 mm thick angled axial sections acquired from the foramen magnum to the vertex, with coronal and sagittal reformats. For radiation dose reduction, the following was used: automated exposure control, adjustment of mA and/or kV according to patient size. COMPARISON: None. FINDINGS: Image quality: Excellent. CSF spaces: Basal cisterns are patent. No extra-axial fluid collections. The ventricles are symmetric in size and shape. Brain: No intracranial bleeds or masses. Old lacunar infarcts are noted in bilateral basal ganglia. There is cerebral volume loss for age, with resultant ventricular and sulcal prominence. There are periventricular and deep white matter chronic small vessel ischemic changes. There is intracranial internal carotid artery atherosclerosis. Skull and face: No acute skull fracture is seen. Tip of nasal bone fracture is seen with adjacent soft tissue swelling. Sinuses: Mucosal thickening and fluid in right maxillary sinus and bilateral ethmoid sinuses are seen. Bilateral orbital holden are intact. IMPRESSION: 1. No CT evidence of acute intracranial bleed, midline shift or mass effect. 2. Age related volume loss and [id number] white matter chronic small vessel ischemic changes. 3. No gross acute skull fracture. Suggestion of tip ule nasal bone fracture. Mucosal thickening and fluid in bilateral ethmoid sinuses and right maxillary sinus is seen. Please correlate with CT of facial bone findings. Dictated by: Zion Phan M.D. on 03/12/2023 at 12:39 Approved by: Zion Phan M.D. on 03/12/2023 at 12:40
--- NOTE | 2023-03-12 12:18 | DI.CT.S_ITS ---
PROCEDURE: CT FACIAL BONES WO CON INDICATIONS: Fall/pain TECHNIQUE: Noncontrast 2.5 mm thick axial images acquired from the mandible through the frontal sinuses, with coronal and sagittal reformatting. For radiation dose reduction, the following was used: automated exposure control, adjustment of mA and/or kV according to patient size. COMPARISON: None. FINDINGS: Image quality: Excellent. Bones and teeth: Orbital holden are intact. Sinus holden show no fracture or deformity. There are displaced nasal bone fractures. No septal fracture appreciated. However, there is leftward septal deviation noted. Visualized portions of the mandible demonstrate no fractures or subluxation. Zygomatic arches are intact. Pterygoid plates are intact. Visualized portions of the skull base and auditory canals are intact. Sinuses: Intermediate density fluid is layered within the right maxillary sinus which may represent a small amount of hemorrhage. Mucosal thickening is present within the inferior left maxillary sinus. Diffuse mucosal thickening is present throughout the turbinates. The right mastoid air cells are partially fluid-filled. The sphenoid and maxillary sinuses are well aerated. Soft tissues: No edema, masses, or fluid collections. No enlarged lymph nodes. No soft tissue lacerations or debris. Vascular: Visualized vascular structures appear normal in the absence of contrast. Bony vascular foramina and canals are intact. IMPRESSION: 1. Displaced nasal bone fractures in questionable right maxillary sinus hemorrhage. 2. Partially fluid-filled right mastoid air cells. No temporal bone fracture appreciated on this limited view. Dictated by: Chantal Hair M.D. on 03/12/2023 at 13:04 Approved by: Chantal Hair M.D. on 03/12/2023 at 13:09
--- NOTE | 2023-03-12 14:40 | ED.HEATRA ---
HPI - Head Injury General Chief complaint: Head Injury Stated complaint: Fall, lac on face Time Seen by Provider: 03/12/23 11:54 Source: patient Mode of arrival: Wheelchair History of Present Illness HPI Narrative: Patient here for nasal laceration/nasal pain after falling from ground level. Patient was helping move a heavy item on the gazebo. He lost his balance and fell onto his face. Denies any other injuries. No loss of consciousness. Patient is not on any blood thinners. Bleeding is controlled. Wound visualized. Based visualized. Denies any nausea headache vision changes. Denies any taste of blood in the back of his mouth. Denies any other injuries Related Data Home Medications Medication Instructions Recorded Confirmed sevelamer carbonate 800 mg tablet 800 mg PO .COMPLEX 07/27/22 11/29/22 calcium acetate(phosphat bind) 667 667 mg PO ONCE 09/27/22 11/29/22 mg capsule folic acid-vit B6-vit B12 2.5 1 tab PO 11/29/22 11/29/22 mg-25 mg-1 mg tablet ([employer]) isosorbide mononitrate 30 mg 30 mg PO DAILY 11/29/22 11/29/22 tablet,extended release 24 hr Previous Rx's Medication Instructions Recorded atorvastatin 40 mg tablet 40 mg PO BEDTIME #90 tabs 07/27/22 carvedilol 25 mg tablet 25 mg PO BID #180 tabs 07/27/22 pantoprazole 40 mg tablet,delayed 40 mg PO DAILY #90 tabs 07/27/22 release Disabled Parking Permit #1 ea 11/29/22 ferrous gluconate 324 mg (38 mg 324 mg PO DAILY #90 tabs 11/29/22 iron) tablet hydrocodone 5 mg-acetaminophen 325 1 tab PO Q4-6H PRN pain #20 tabs 01/04/23 mg tablet ondansetron 4 mg disintegrating 4 mg PO TID-QID PRN nausea and 01/04/23 tablet vomiting #10 tabs doxepin 3 mg tablet 3 mg PO BEDTIME PRN sleep #30 tabs 02/04/23 cephalexin 250 mg capsule 250 mg PO BID #10 caps 03/12/23 Allergies Allergy/AdvReac Type Severity Reaction Status Date / Time No Known Drug Allergies Allergy Verified 01/18/23 10:22 Review of Systems Review of Systems Narrative: GENERAL: negative chills, fatigue, malaise, fever, sweats. HEENT: negative sinus pain, ear pain, sore throat, positive nasal pain RESPIRATORY: negative dyspnea, cough CARDIOVASCULAR: negative chest pain, palpitations GASTROINTESTINAL: negative nausea, vomiting, abdominal pain : negative dysuria, frequency, hematuria MUSCULOSKELETAL: negative muscle or bony pain SKIN: negative rash, skin lesions NEUROLOGIC: negative weakness, numbness ROS Unobtainable: All systems reviewed & are unremarkable except as noted in HPI and below Patient History Medical History Abdominal aneurysm without mention of rupture (~2017) Anemia (~2021) CAD (coronary artery disease) GERD (gastroesophageal reflux disease) Hearing loss (~1999) Heart failure (~2017) History of kidney disease (~2020) Hyperlipidemia Hypertension Insomnia Renal failure (~2020) Stroke (~2018) Surgical History AAA (abdominal aortic aneurysm) (~02/2022) Anesthesia History of bladder surgery (~1999) History of heart surgery (~06/2018) Family History Mother Cancer Brother Mental health problem Grandfather Cancer Social History Smoking Status: Current every day smoker Smoking Status: Current every day smoker tobacco type: cigarettes alcohol intake frequency: holidays/special occasions only Substance Use Type: does not use Exam Narrative Exam Narrative: GENERAL: in no distress, not toxic not dyspneic HEAD: Normocephalic. EYES: Pupils equal round ENT: Mucous membranes moist. Examination of nose and pharynx. No blood in posterior pharynx. There is a 2 cm diagonal laceration across the bridge of the nose. No bony injury seen, based visualized in bloodless field. Intranasal/nostril exam both sides, no septal hematoma seen, no active bleeding. No blood clots seen in the nostrils. No bony fragments seen protruding into the nasal/nostrils NECK: Trachea midline. No midline tenderness or step-off of the cervical spine BACK: No flank tenderness. NEURO: AOx4. SKIN: Warm and dry PSYCH: Not anxious, is cooperative Initial Vital Signs Initial Vital Signs: Vital Signs Temperature 98.4 F 03/12/23 11:44 Pulse Rate 72 03/12/23 11:44 Respiratory Rate 18 03/12/23 11:44 Blood Pressure 181/90 H 03/12/23 11:44 Pulse Oximetry 97 03/12/23 11:44 Oxygen Delivery Method Room Air 03/12/23 11:44 Procedures Laceration Repair Laceration 1: Time of procedure: 15:30 Site: other (Nose) Size (cm): 2 Description: linear Depth: simple, single layer Local Anesthetic: lidocaine 1% Amount of anesthesia used (mL): 1 Pre-repair: wound explored, irrigated extensively and cleansed with chlorhexadine Skin layer closed with: nylon Skin layer suture size: 5-0 Number of sutures: 4 Technique: simple, interrupted Course Orders Ordered: Discontinued Medications Bacitracin (Bacitracin Oint 0.9 Gm Pckt) 1 applic TOP NOW ONE Stop: 03/12/23 15:03 Last Admin: 03/12/23 15:08 Dose: 1 applic Documented By: KATE Cephalexin HCl (Cephalexin 250 Mg Capsule) 500 mg PO NOW ONE Stop: 03/12/23 15:03 Last Admin: 03/12/23 15:08 Dose: 500 mg Documented By: KATE Diphtheria/Tetanus/Acell Pertussis (Tet,Diph,Pertuss(Acell),Vac/Pf 0.5 Ml Syringe) 0.5 ml IM .ONCE ONE Stop: 03/12/23 14:41 Last Admin: 03/12/23 14:45 Dose: 0.5 ml Documented By: KATE Lidocaine HCl (Lidocaine 1% 20 Ml) 20 ml INJ INTRA-OP ONE Stop: 03/12/23 14:40 Last Admin: 03/12/23 14:45 Dose: 20 ml Documented By: KATE Vital Signs Vital signs: Vital Signs - 8 hr 03/12/23 11:44 Temperature 98.4 F Pulse Rate 72 Respiratory Rate 18 Blood Pressure 181/90 H Pulse Oximetry 97 Oxygen Delivery Method Room Air MDM - Head Injury Imaging Data CT scan - head: Radiologist's Impression: [address] [address] [address] Scan Report Signed Patient: Elias Sanchez MR#: [id number] : 1950 Acct:[id number] Age/Sex: 72 / M Date of Service: 03/12/23 Loc: ED Accession Number: [id number] ?? Procedure: CT head/brain wo con Ordering Provider: Rell Junior MD PROCEDURE:? CT HEAD/BRAIN WO CON ? INDICATIONS:? Fall/pain ? TECHNIQUE:? Noncontrast 4.5 mm thick angled axial sections acquired from the foramen magnum to the vertex, with coronal and sagittal reformats.? For radiation dose reduction, the following was used:? automated exposure control, adjustment of mA and/or kV according to patient size.? ? COMPARISON:? None. ? FINDINGS:? Image quality:? Excellent.? ? CSF spaces:? Basal cisterns are patent.? No extra-axial fluid collections.? The ventricles are symmetric in size and shape.? ? Brain:? No intracranial bleeds or masses.? Old lacunar infarcts are noted in bilateral basal ganglia.? There is cerebral volume loss for age, with resultant ventricular and sulcal prominence.? There are periventricular and deep white matter chronic small vessel ischemic changes.? There is intracranial internal carotid artery atherosclerosis.? ? Skull and face:? No acute skull fracture is seen.? Tip of nasal bone fracture is seen with adjacent soft tissue swelling. ? Sinuses:? Mucosal thickening and fluid in right maxillary sinus and bilateral ethmoid sinuses are seen.? Bilateral orbital holden are intact. ? IMPRESSION:? ? 1. No CT evidence of acute intracranial bleed, midline shift or mass effect. ? 2.? Age related volume loss and lwmp-vz-hxrshnwf white matter chronic small vessel ischemic changes. ? 3. No gross acute skull fracture.? Suggestion of tip ule nasal bone fracture.? Mucosal thickening and fluid in bilateral ethmoid sinuses and right maxillary sinus is seen.? Please correlate with CT of facial bone findings. ? ? Dictated by: Zion Phan M.D. on 03/12/2023 at 12:39 ? ? Approved by: Zion Phan M.D. on 03/12/2023 at 12:40 ? CT - cervical spine: Radiologist's Impression: [address] [address] [address] Scan Report Signed Patient: Elias Sanchez MR#: [id number] : 1950 Acct:[id number] Age/Sex: 72 / M Date of Service: 03/12/23 Loc: ED Accession Number: [id number] ?? Procedure: CT cervical spine wo con Ordering Provider: Rell Junior MD PROCEDURE:? CT CERVICAL SPINE WO CON ? INDICATIONS:? Fall/pain ? TECHNIQUE:? Noncontrast 3 mm thick sections acquired from the skull base to the T4 level.? Sagittal and coronal reformats were then constructed.? For radiation dose reduction, the following was used:? automated exposure control, adjustment of mA and/or kV according to patient size.? ? COMPARISON:? None. ? FINDINGS:? Image quality:? Excellent.? ? Bones:? No fractures or dislocations.? Straightening of normal cervical lordosis is seen. ?Loss of disc height, degenerative endplate changes and bilateral facet hypertrophic changes are noted at C4-5, C5-6 and C6-7 levels.? Dorsal disc osteophyte complex formation at C4-5 through C6-7 levels are seen causing iscm-is-tzwwhhmv central canal stenosis and bilateral neural foraminal narrowing.? Visualized superior ribs are intact.? ? ? Soft tissues:? Prevertebral soft tissues are normal in thickness.? No paravertebral hematomas.? No apical pneumothoraces.? ? ? IMPRESSION:? ? 1. No acute cervical spine fracture or dislocation. ? 2. Degenerative disc disease throughout cervical spine most notably in mid to lower cervical spine as above. ? Dictated by: Zion Phan M.D. on 03/12/2023 at 12:36 ? ? Approved by: Zion Phan M.D. on 03/12/2023 at 12:37 ? CT facial: Radiologist's Impression: [place] [address] CT Scan Report Signed Patient: Elias Sanchez MR#: [id number] : 1950 Acct:[id number] Age/Sex: 72 / M Date of Service: 03/12/23 Loc: ED Accession Number: [id number] ?? Procedure: CT facial bones wo con Ordering Provider: Rell Junior MD PROCEDURE:? CT FACIAL BONES WO CON ? INDICATIONS:? Fall/pain ? TECHNIQUE:? Noncontrast 2.5 mm thick axial images acquired from the mandible through the frontal sinuses, with coronal and sagittal reformatting.? For radiation dose reduction, the following was used:? automated exposure control, adjustment of mA and/or kV according to patient size.? ? COMPARISON:? None. ? FINDINGS:? Image quality:? Excellent.? ? Bones and teeth:? Orbital holden are intact.? Sinus holden show no fracture or deformity.? There are displaced nasal bone fractures.? No septal fracture appreciated.? However, there is leftward septal deviation noted.? Visualized portions of the mandible demonstrate no fractures or subluxation.? Zygomatic arches are intact.? Pterygoid plates are intact.? Visualized portions of the skull base and auditory canals are intact.? ? Sinuses:? Intermediate density fluid is layered within the right maxillary sinus which may represent a small amount of hemorrhage.? Mucosal thickening is present within the inferior left maxillary sinus.? Diffuse mucosal thickening is present throughout the turbinates.? The right mastoid air cells are partially fluid-filled.? The sphenoid and maxillary sinuses are well aerated. ? Soft tissues:? No edema, masses, or fluid collections.? No enlarged lymph nodes.? No soft tissue lacerations or debris.? ? Vascular:? Visualized vascular structures appear normal in the absence of contrast.? Bony vascular foramina and canals are intact.? ? IMPRESSION:? ? 1. Displaced nasal bone fractures in questionable right maxillary sinus hemorrhage. ? 2. Partially fluid-filled right mastoid air cells.? No temporal bone fracture appreciated on this limited view. ? ? Dictated by: Chantal Hair M.D. on 03/12/2023 at 13:04 ? ? Approved by: Chantal Hair M.D. on 03/12/2023 at 13:09 ? [facility] Narrative Medical decision making narrative: Patient here for nasal laceration/nasal pain after falling from ground level. Patient was helping move a heavy item on the gazebo. He lost his balance and fell onto his face. Denies any other injuries. No loss of consciousness. Patient is not on any blood thinners. Bleeding is controlled. Wound visualized. Based visualized. Denies any nausea headache vision changes. Denies any taste of blood in the back of his mouth. Denies any other injuries After history and exam CT head CT face CT cervical spine Tdap Keflex suture repair MDM CC: Nasal injury Complicating co-morbidities: Patient on dialysis Data collected from: Patient and Medical records reviewed: No recent visits for this complaint Differential considered: Includes but not limited to nasal fracture septal hematoma nasal laceration Exam documented above, pertinent findings include: Nasal laceration Imaging studies independently reviewed: CT head no acute process CT cervical spine no acute process CT facial bones there is displaced nasal bone fractures with questionable right maxillary sinus hemorrhage Consultations: 3:[address] Romulo Curtis, otolaryngology, would like to see patient 3-5 days for re-evaluation for surgery. Agrees with treatment plan done here in the department. Treatments: Tdap Keflex suture repair Re-evaluations: 3:20 p.m.. Spoke with patient results of my discussion with Dr. Romulo Curtis and they agree for follow up with Dr. Romulo Curtis for further evaluation and treatment and possibly surgery/repair Discussion: Appropriate for discharge home. No septal hematoma seen on exam. Nasal speculum used to exam. Otherwise CT imaging are reassuring. No blood work indicated. Patient had mechanical fall. Return precautions reviewed wound care instructions reviewed. They desire discharge home Diagnosis: Open nasal fracture Discharge Plan Departure Patient Disposition: Home Clinical Impression: Open displaced fracture of nasal bone Instructions: DI for Nose Fracture, DI for Laceration Repair Activity Restrictions/Additional Instructions: Please call provided ear nose and throat surgeon office today for office appointment to be seen 3-5 days. Informed the office Dr. Romulo Curtis would like to see you in this timeframe.. Please clean nose wound daily with warm soap and water and apply a thin layer of topical antibiotic. Please keep nose out of exposure of the sun. No swimming or submersion under water. You may shower. Continue antibiotic tomorrow. Prescription antibiotic has been sent to your pharmacy to tile picker today. Prescriptions: New cephalexin 250 mg capsule 250 mg PO BID Qty: 10 0RF No Action doxepin 3 mg tablet 3 mg PO BEDTIME PRN (Reason: sleep) Qty: 30 1RF sevelamer carbonate 800 mg tablet 800 mg PO .COMPLEX Rx Instructions: 800 mg orally; must administer with a meal/food Three tabs in AM Two tabs in PM (if snack) atorvastatin 40 mg tablet 40 mg PO BEDTIME Qty: 90 3RF carvedilol 25 mg tablet 25 mg PO BID Qty: 180 3RF Rx Instructions: must administer with a meal/food pantoprazole 40 mg tablet,delayed release (DR/EC) 40 mg PO DAILY Qty: 90 3RF calcium acetate(phosphat bind) 667 mg capsule 667 mg PO ONCE Patient Comments: TAKE 1 CAPSULE BY MOUTH THREE TIMES DAILY WITH MEALS isosorbide mononitrate 30 mg tablet extended release 24 hr 30 mg PO DAILY WesTab One 2.5-25-1 mg tablet 1 tab PO Patient Comments: TAKE 1 TABLET BY MOUTH EVERY DAY (DME) Disabled Parking Permit See Rx Instructions .Route .MEDSUPPLY Qty: 1 0RF Rx Instructions: I find this patient to be medically disabled and qualified for Disabled Parking as indicated and signed on the Accompanying Disabled Parking Application for Individuals. ferrous gluconate 324 mg (38 mg iron) tablet 324 mg PO DAILY Qty: 90 1RF hydrocodone-acetaminophen 5-325 mg tablet 1 tab PO Q4-6H PRN (Reason: pain) Qty: 20 0RF ondansetron 4 mg tablet,disintegrating 4 mg PO TID-QID PRN (Reason: nausea and vomiting) Qty: 10 0RF Referrals: Chuck Ayala MD [Physician] - Romulo Curtis MD [Physician] - Lei Newman DO [Primary Care Provider] - Stand Alone Forms: Patient Portal/API
[2023-03-12] MEDS: LIDOCAINE 1% 20 ML INJ (14:45)
[2023-03-12] MEDS: TET,DIPH,PERTUSS(ACELL),VAC/PF 0.5 ML SYRINGE IM (14:45)
--- NOTE | 2023-03-12 14:52 | PC.NURSE ---
Physician at the bedside. Lido administered. Sutures applied. Pt tolerated procedure well.
[2023-03-12] MEDS: BACITRACIN OINT 0.9 GM PCKT 1 APPLIC TOP (15:08)
[2023-03-12] MEDS: cephALEXin 250 MG CAPSULE 500 MG PO (15:08)
[2023-03-12 15:26] VITALS: BP 180/87; PULSE 69; O2SAT 94
== END 2023-03-12 15:30 | disposition home or self-care (01) ==
PROVIDERS: Emergency Provider Emergency Medicine; PCP Family Medicine
DX: S02.2XXB Fracture of nasal bones, initial encounter for open fracture (principal); W18.30XA Fall on same level, unspecified, initial encounter; Z23 Encounter for immunization
CPT/HCPCS: 12011; 70450; 70486; 72125; 90471; 99284; 90715

== ENCOUNTER 2023-07-09 10:00 | Emergency (ER) | payer MEDICARE, OTHER, SELFPAY ==
[2023-07-09] VITALS (13 sets, daily range): BP systolic 121–140; BP diastolic 57–63; PULSE 72–81; RESP 20–32; TEMP 36.9; O2SAT 90–96; BMI 25.8
--- NOTE | 2023-07-09 10:05 | DI.CT.S_ITS ---
PROCEDURE: CT ANGIO HEAD AND NECK INDICATIONS: Altered mental status TECHNIQUE: After the administration of intravenous contrast, 1 mm thick sections acquired from the aortic arch through the [place]. 3-dimensional ryktoyr-cbuhgehig-fhltmmjuqs (MIP) and/or volume rendering reformats were acquired of the central intracranial vasculature and neck separately. For radiation dose reduction, the following was used: automated exposure control, adjustment of mA and/or kV according to patient size. COMPARISON: [facility], CR, XR CHEST 1V, 07/09/2023, 10:20. [facility], CT, CT HEAD/BRAIN WO CON, 07/09/2023, 10:10. FINDINGS: Image quality: There is streak artifact seen through the level of the shoulders. BRAIN: CSF spaces: Ventricles are normal in size and shape. Basal cisterns are patent. No extra-axial fluid collections. Brain: No significant abnormality of the brain can be seen. Skull and face: Calvarium and facial bones appear intact, without suspicious lesions. Orbits appear normal. Sinuses: Sinuses and mastoids are clear. HEAD CT ANGIOGRAPHY: Anterior circulation: Intracranial internal carotid arteries demonstrate atherosclerotic irregularity and calcification. The flow within the paired anterior cerebral arteries is normal and symmetric. The flow within the middle cerebral arteries is normal and symmetric. The anterior communicating artery is seen. No aneurysms are seen. Posterior circulation: Visualized portions of the vertebral arteries demonstrate normal caliber, and join to form a normal appearing basilar artery. There is a prominent right posterior communicating artery seen, with an accompanying diminutive right P1 segment. This is attributed to a type origin of the right posterior cerebral artery, which is considered to be a normal developmental variant of typically no clinical consequence. The flow within the posterior cerebral arteries is normal and symmetric. No aneurysms are seen. NECK CT ANGIOGRAPHY: Carotid system: The great vessels demonstrate a conventional anatomy as they arise from the aortic arch. Atherosclerotic calcification is noted. The origins of the common carotid arteries appear patent. The common carotid arteries demonstrate normal caliber and courses. The bifurcation regions demonstrate atherosclerotic irregularity and calcification, with 30-40% narrowing seen on the right. No significant narrowing can be seen on the left. The more distal internal carotid arteries demonstrate normal course and caliber. Posterior circulation: There is approximately 50% narrowing seen involving the origin of both vertebral arteries. The more superior extracranial portions of both vertebral arteries demonstrate normal courses and calibers. The right vertebral artery is dominant to the left. Soft tissues: Visualized neck soft tissues demonstrate no suspicious abnormalities. A 1.5 cm right thyroid nodule is seen. Bones: No suspicious bony lesions. Visualized cervical spine appears normally aligned. Moderate to prominent lower cervical spine degenerative change can be seen. IMPRESSION: 30-40% narrowing seen involving the origin of the right internal carotid artery. Approximately 50% narrowing seen can be seen involving the origins of both vertebral arteries. No significant intracranial arterial abnormality is seen. 1.5 cm right thyroid nodule. When clinically appropriate, please consider follow-up thyroid ultrasound, by published criteria. Additional findings: type origin of the right posterior cerebral artery Moderate to prominent lower cervical spine degenerative change Any quantitative measurements of stenosis were performed using NASCET criteria. Dictated by: Jani Redd M.D. on 07/09/2023 at 9:47 Approved by: Jani Redd M.D. on 07/09/2023 at 9:52
--- NOTE | 2023-07-09 10:05 | DI.CT.S_ITS ---
PROCEDURE: CT HEAD/BRAIN WO CON INDICATIONS: Altered mental status TECHNIQUE: Noncontrast 4.5 mm thick angled axial sections acquired from the foramen magnum to the vertex, with coronal and sagittal reformats. For radiation dose reduction, the following was used: automated exposure control, adjustment of mA and/or kV according to patient size. COMPARISON: [facility], CR, XR CHEST 1V, 07/09/2023, 10:20. [facility], CT, CT ANGIO HEAD AND NECK, 07/09/2023, 10:10. [facility], CT, CT HEAD/BRAIN WO CON, 03/12/2023, 12:20. FINDINGS: Image quality: This examination is limited by involuntary motion artifact. CSF spaces: Basal cisterns are patent. No extra-axial fluid collections. The ventricles are symmetric in size and shape. Brain: No intracranial bleeds or masses. There is cerebral volume loss for age, with resultant ventricular and sulcal prominence. There are periventricular and deep white matter chronic small vessel ischemic changes. There is intracranial internal carotid artery atherosclerosis. Skull and face: Calvarium and visualized facial bones appear intact, without suspicious lesions. Sinuses: Mucous retention cysts can be seen involving the left maxillary sinus. Visualized sinuses and mastoids are otherwise clear. IMPRESSION: Motion limited study, without an acute abnormality identified. If there is strong clinical suspicion for an acute stroke, please consider a brain MRI for further evaluation, as it is more sensitive (assuming that there is no contraindication to MRI). Dictated by: Jani Redd M.D. on 07/09/2023 at 9:53 Approved by: Jani Redd M.D. on 07/09/2023 at 9:54
--- NOTE | 2023-07-09 10:07 | DI.RAD.S_ITS ---
PROCEDURE: XR CHEST 1V INDICATIONS: shortness of breath TECHNIQUE: One view of the chest was acquired. COMPARISON: [facility], CT, CT ANGIO HEAD AND NECK, 07/09/2023, 10:10. [facility], CT, CT HEAD/BRAIN WO CON, 07/09/2023, 10:10. [facility], CR, XR CHEST 1V, 09/21/2022, 15:03. [facility], CR, XR CHEST 1 VIEW, 10/15/2022, 13:15. [facility], CR, XR CHEST 1V, 10/16/2022, 12:34. FINDINGS: Surgical changes and devices: A right-sided dialysis catheter is seen. Post CABG changes are seen. Lungs and pleura: Mild generalized interstitial prominence can be seen. No pleural effusions or pneumothorax. Mediastinum: Mediastinal contours appear normal. Heart size is normal. Atherosclerotic calcification of the aortic arch is noted. Bones and chest wall: There is a remote right proximal humeral fracture. Age-appropriate bony degenerative changes are seen. No suspicious bony lesions. Overlying soft tissues appear unremarkable. IMPRESSION: Mild generalized interstitial prominence can be seen. Please consider mild pulmonary edema. Dialysis catheter seen. Remote right proximal humeral fracture. Dictated by: Jani Redd M.D. on 07/09/2023 at 9:46 Approved by: Jani Redd M.D. on 07/09/2023 at 9:47
--- NOTE | 2023-07-09 10:18 | ED.GENADULT ---
HPI - General Adult General Chief complaint: Weakness Stated complaint: possible stroke Time Seen by Provider: 07/09/23 10:04 Source: patient and family Mode of arrival: Wheelchair Limitations: no limitations History of Present Illness HPI narrative: Patient is a 72-year-old male. End-stage renal disease on dialysis. Only produces a very small amount of urine occasionally. Is scheduled for dialysis today. Patient's states that he is normally alert and active. She thought that last evening he seemed to be somewhat altered. This morning he states he feels very fatigued. She thought that last evening he was very difficult to understand. A difficult time walking. Symptoms continued into this morning. Patient denies chest pain or shortness of breath or abdominal pain. His only complaint is that he is very fatigued. Related Data Home Medications Medication Instructions Recorded Confirmed calcium acetate(phosphat bind) 667 667 mg PO ONCE 09/27/22 05/22/23 mg capsule folic acid-vit B6-vit B12 2.5 1 tab PO DAILY 11/29/22 05/22/23 mg-25 mg-1 mg tablet ([employer]) isosorbide mononitrate 30 mg 30 mg PO DAILY 11/29/22 05/22/23 tablet,extended release 24 hr calcium carbonate 400 mg calcium 400 mg PO DAILY 03/25/23 05/22/23 (1,000 mg) chewable tablet ([facility]) amlodipine 5 mg tablet 5 mg PO DAILY 05/08/23 05/22/23 calcitriol 0.25 mcg capsule 0.25 mcg PO 3XW 05/08/23 05/22/23 lisinopril 10 mg tablet 10 mg PO DAILY 05/08/23 05/22/23 sevelamer HCl 800 mg tablet 800 mg PO TID 05/08/23 05/22/23 vitamin B complex PO 05/08/23 05/22/23 Previous Rx's Medication Instructions Recorded atorvastatin 40 mg tablet 40 mg PO BEDTIME #90 tabs 07/27/22 carvedilol 25 mg tablet 25 mg PO BID #180 tabs 07/27/22 pantoprazole 40 mg tablet,delayed 40 mg PO DAILY #90 tabs 07/27/22 release Disabled Parking Permit #1 ea 11/29/22 trazodone 50 mg tablet 50 mg PO BEDTIME #30 tabs 06/14/23 ciprofloxacin HCl 250 mg tablet 250 mg PO BID #6 tabs 05/21/23 ferrous gluconate 324 mg (38 mg 324 mg PO DAILY #90 tabs 05/28/23 iron) tablet nortriptyline 10 mg capsule 10 mg PO ONCE PM for insomnia #30 06/19/23 caps Allergies Allergy/AdvReac Type Severity Reaction Status Date / Time No Known Drug Allergies Allergy Verified 05/22/23 09:53 Review of Systems Review of Systems ROS Unobtainable: All systems reviewed & are unremarkable except as noted in HPI and below Patient History Medical History Abdominal aneurysm without mention of rupture (~2017) Anemia (~2021) CAD (coronary artery disease) Cognitive decline End-stage renal disease on hemodialysis GERD (gastroesophageal reflux disease) Gross hematuria Hearing loss (~1999) Heart failure (~2017) History of benign bladder tumor History of kidney disease (~2020) Hyperlipidemia Hypertension Insomnia Renal atrophy, bilateral Renal failure (~2020) Skin lesion Stroke (~2018) Tobacco use Surgical History AAA (abdominal aortic aneurysm) (~02/2022) Anesthesia History of bladder surgery (~1999) History of heart surgery (~06/2018) Family History Mother Cancer Brother Mental health problem Grandfather Cancer Social History Smoking Status: Current every day smoker Smoking Status: Current every day smoker tobacco type: cigarettes alcohol intake frequency: holidays/special occasions only Substance Use Type: does not use Exam Initial Vital Signs Initial Vital Signs: Vital Signs Temperature 98.5 F 07/09/23 10:09 Pulse Rate 80 07/09/23 10:09 Respiratory Rate 32 H 07/09/23 10:09 Blood Pressure 136/61 07/09/23 10:09 Pulse Oximetry 95 07/09/23 10:09 Oxygen Delivery Method Room Air 07/09/23 10:09 Const General: cooperative, comfortable and other (Appears chronically unwell) HENMT Head: normal to inspection and normocephalic Chest Other: Dialysis port right upper chest Resp Effort & Inspection: not labored and tachypneic Auscultation: clear to auscultation bilaterally Cardio Rate: regular rate Rhythm: regular rhythm GI Inspection: normal to inspection and non-distended Skin General: no rashes or lesions noted Neuro Other: Patient is alert oriented x3. He does move all 4 extremities equally. Has no visible facial droop. He does seem somewhat slow to answer questions however his words are clear and easily understood. Extrem Other: No gross deformities Course Orders Ordered: ED Orders 07/09/23 10:05 CT angio head and neck Stat CT head/brain wo con Stat EKG-12 Lead Stat 07/09/23 10:07 XR chest 1V Stat 07/09/23 10:10 Complete Blood Count AUTO DIFF Stat Comprehensive Metabolic Panel Stat Ethanol (ETOH) Stat Lipase Stat Magnesium Stat Troponin & CK Cardiac Panel Stat Vital Signs Vital signs: Vital Signs - 8 hr 07/09/23 10:09 07/09/23 10:15 07/09/23 10:27 Temperature 98.5 F Pulse Rate 80 79 Respiratory Rate 32 H 32 H Blood Pressure 136/61 140/63 Pulse Oximetry 95 93 Oxygen Delivery Method Room Air 07/09/23 10:27 07/09/23 10:30 07/09/23 10:35 Temperature Pulse Rate 81 81 76 Respiratory Rate 28 H 32 H 28 H Blood Pressure Pulse Oximetry 92 92 90 L Oxygen Delivery Method 07/09/23 10:35 07/09/23 10:45 07/09/23 11:00 Temperature Pulse Rate 74 Respiratory Rate 28 H Blood Pressure 124/57 L 123/58 L Pulse Oximetry 96 Oxygen Delivery Method 07/09/23 11:00 07/09/23 11:15 07/09/23 11:30 Temperature Pulse Rate 73 73 Respiratory Rate 27 H 23 Blood Pressure 121/58 L Pulse Oximetry 94 94 Oxygen Delivery Method 07/09/23 11:30 07/09/23 11:45 07/09/23 12:00 Temperature Pulse Rate 73 72 Respiratory Rate 26 H 28 H Blood Pressure 123/61 Pulse Oximetry 93 91 Oxygen Delivery Method 07/09/23 12:00 07/09/23 12:15 Temperature Pulse Rate 73 75 Respiratory Rate 27 H 29 H Blood Pressure Pulse Oximetry 92 92 Oxygen Delivery Method Medical Decision Making Medical Records Medical records reviewed: Yes I reviewed the patient's medical records. Lab Data Lab results reviewed: Yes I reviewed the patient's lab results. 07/09/23 10:10 07/09/23 10:10 Labs: Lab Results 07/09/23 07/09/23 Range/Units 10:10 10:10 WBC 6.8 (4.5-11.0) X10^3/uL RBC 3.32 L (4.5-5.9) X10^6/uL Hgb 10.7 L (13.5-17.5) g/dL Hct 31.7 L (41-53) % MCV 95.7 (80-100) fL MCH 32.4 (26-34) PG MCHC 33.8 (30-36) % RDW 17.6 H (11.6-14.8) % Plt Count 99 L (150-400) X10^3/uL Neut % (Auto) 89.7 H (50-75) % Lymph % (Auto) 5.2 L (25-40) % [place] % (Auto) 4.8 (3-14) % Eos % (Auto) 0.0 L (2-4) % Baso % (Auto) 0.3 (0-2) % Neut # (Auto) 6100 (0239-4133) /uL Lymph # (Auto) 400 L (8077-3053) /uL [place] # (Auto) 300 (0-900) /uL Eos # (Auto) 0 (0-450) /uL Baso # (Auto) 0 (0-100) /uL Sodium 135 L (137-145) mmol/L Potassium 5.3 H (3.4-5.1) mmol/L Chloride 98 (98-107) mmol/L Carbon Dioxide 19 L (22-32) mmol/L BUN 101 H (9-20) mg/dL Creatinine 12.44 H* (0.66-1.25) mg/dL Estimated GFR 4 L (>60) mL/min BUN/Creatinine Ratio 8.1 (6-22) Glucose 187 H (80-110) mg/dL Calcium 9.0 (8.4-10.2) mg/dL Magnesium 1.7 (1.6-2.3) mg/dL Total Bilirubin 0.9 (0.2-1.3) mg/dL AST 21 (17-59) IU/L ALT 15 (<50) IU/L Alkaline Phosphatase 80 (38-126) U/L Total Creatine Kinase 157 (55-170) U/L Troponin I 0.051 H (0.01-0.034) ng/mL Total Protein 6.9 (6.3-8.2) g/dL Albumin 3.9 (3.5-5.0) g/dL Globulin 3.0 (1.7-4.1) g/dL Albumin/Globulin Ratio 1.3 (1.0-2.8) Lipase 86 (23-300) U/L Ethyl Alcohol < 10 ( - 10) mg/dL Point of Care Testing Glucose POC 188 Point of care testing: Point of Care Testing Glucose POC 188 Imaging Data Chest x-ray: Radiologist's Impression: PROCEDURE:? XR CHEST 1V ? INDICATIONS:? shortness of breath ? TECHNIQUE:? One view of the chest was acquired.? ? COMPARISON:? [facility], CT, CT ANGIO HEAD AND NECK, 07/09/2023, 10:10.? [facility], CT, CT HEAD/BRAIN WO CON, 07/09/2023, 10:10.? [facility], CR, XR CHEST 1V, 09/21/2022, 15:03.? [facility], CR, XR CHEST 1 VIEW, 10/15/2022, 13:15.? [facility], CR, XR CHEST 1V, 10/16/2022, 12:34. ? FINDINGS:? ? Surgical changes and devices:? A right-sided dialysis catheter is seen. Post CABG changes are seen.? ? Lungs and pleura:? Mild generalized interstitial prominence can be seen.? No pleural effusions or pneumothorax.? ? Mediastinum:? Mediastinal contours appear normal.? Heart size is normal. Atherosclerotic calcification of the aortic arch is noted.? ? Bones and chest wall:? There is a remote right proximal humeral fracture.? Age-appropriate bony degenerative changes are seen.? ? No suspicious bony lesions.? Overlying soft tissues appear unremarkable.? ? ? IMPRESSION:? Mild generalized interstitial prominence can be seen.? Please consider mild pulmonary edema. ? Dialysis catheter seen. ? Remote right proximal humeral fracture. CT scan - head: Radiologist's Impression: PROCEDURE:? CT HEAD/BRAIN WO CON ? INDICATIONS:? Altered mental status ? TECHNIQUE:? Noncontrast 4.5 mm thick angled axial sections acquired from the foramen magnum to the vertex, with coronal and sagittal reformats.? For radiation dose reduction, the following was used:? automated exposure control, adjustment of mA and/or kV according to patient size.? ? COMPARISON:? [facility], CR, XR CHEST 1V, 07/09/2023, 10:20.? [facility], CT, CT ANGIO HEAD AND NECK, 07/09/2023, 10:10.? [facility], CT, CT HEAD/BRAIN WO CON, 03/12/2023, 12:20. ? FINDINGS:? Image quality:? This examination is limited by involuntary motion artifact.? ? CSF spaces:? Basal cisterns are patent.? No extra-axial fluid collections.? The ventricles are symmetric in size and shape.? ? Brain:? No intracranial bleeds or masses.? There is cerebral volume loss for age, with resultant ventricular and sulcal prominence.? There are periventricular and deep white matter chronic small vessel ischemic changes.? There is intracranial internal carotid artery atherosclerosis.? ? Skull and face:? Calvarium and visualized facial bones appear intact, without suspicious lesions.? ? Sinuses:? Mucous retention cysts can be seen involving the left maxillary sinus. ? Visualized sinuses and mastoids are otherwise clear.? IMPRESSION:? Motion limited study, without an acute abnormality identified. ? If there is strong clinical suspicion for an acute stroke, please consider a brain MRI for further evaluation, as it is more sensitive (assuming that there is no contraindication to MRI). CTA - brain/neck: Radiologist's Impression: PROCEDURE:? CT ANGIO HEAD AND NECK ? INDICATIONS:? Altered mental status ? TECHNIQUE:? After the administration of intravenous contrast, 1 mm thick sections acquired from the aortic arch through the [place].? 3-dimensional bpapgwb-skgahypsw-plfvdfutva (MIP) and/or volume rendering reformats were acquired of the central intracranial vasculature and neck separately. For radiation dose reduction, the following was used:? automated exposure control, adjustment of mA and/or kV according to patient size.? ? COMPARISON:? [facility], CR, XR CHEST 1V, 07/09/2023, 10:20.? [facility], CT, CT HEAD/BRAIN WO CON, 07/09/2023, 10:10. ? FINDINGS:? Image quality:? There is streak artifact seen through the level of the shoulders. ? BRAIN:? CSF spaces:? Ventricles are normal in size and shape.? Basal cisterns are patent.? No extra-axial fluid collections.? ? Brain:? No significant abnormality of the brain can be seen. ? ? ? Skull and face:? Calvarium and facial bones appear intact, without suspicious lesions.? Orbits appear normal.? ? Sinuses:? Sinuses and mastoids are clear.? ? HEAD CT ANGIOGRAPHY:? Anterior circulation:? Intracranial internal carotid arteries demonstrate atherosclerotic irregularity and calcification.? The flow within the paired anterior cerebral arteries is normal and symmetric.? The flow within the middle cerebral arteries is normal and symmetric.? The anterior communicating artery is seen.? No aneurysms are seen.? ? Posterior circulation:? Visualized portions of the vertebral arteries demonstrate normal caliber, and join to form a normal appearing basilar artery.? There is a prominent right posterior communicating artery seen, with an accompanying diminutive right P1 segment. This is attributed to a type origin of the right posterior cerebral artery, which is considered to be a normal developmental variant of typically no clinical consequence.? The flow within the posterior cerebral arteries is normal and symmetric.? No aneurysms are seen.? ? NECK CT ANGIOGRAPHY:? Carotid system:? The great vessels demonstrate a conventional anatomy as they arise from the aortic arch. Atherosclerotic calcification is noted. ? The origins of the common carotid arteries appear patent.? The common carotid arteries demonstrate normal caliber and courses.? The bifurcation regions demonstrate atherosclerotic irregularity and calcification, with 30-40% narrowing seen on the right.? No significant narrowing can be seen on the left.? The more distal internal carotid arteries demonstrate normal course and caliber.? ? Posterior circulation:? There is approximately 50% narrowing seen involving the origin of both vertebral arteries.? The more superior extracranial portions of both vertebral arteries demonstrate normal courses and calibers.? The right vertebral artery is dominant to the left.? ? Soft tissues:? Visualized neck soft tissues demonstrate no suspicious abnormalities.? A 1.5 cm right thyroid nodule is seen. ? Bones:? No suspicious bony lesions.? Visualized cervical spine appears normally aligned.? Moderate to prominent lower cervical spine degenerative change can be seen. ? ? IMPRESSION:? 30-40% narrowing seen involving the origin of the right internal carotid artery. ? Approximately 50% narrowing seen can be seen involving the origins of both vertebral arteries. ? No significant intracranial arterial abnormality is seen.? ? 1.5 cm right thyroid nodule.? When clinically appropriate, please consider follow-up thyroid ultrasound, by published criteria. ? ? ? Additional findings:? type origin of the right posterior cerebral artery Moderate to prominent lower cervical spine degenerative change ? Any quantitative measurements of stenosis were performed using NASCET criteria.? ECG Data Attestation: I personally reviewed and interpreted this ECG as follows: Interpretation: Sinus rhythm Ventricular rate 80 Occasional P VC Normal axis No ST T wave changes MDM Narrative Medical decision making narrative: Patient is alert and oriented today. His only complaint is that he was fatigued. Upon further questioning of his at bedside she stated that last evening his issues were more of being confused and not being able to perform tasks that she asked him to do. She thought that he was still somewhat confused this morning. She stated that he never really had any speech changes. His head CT today is unremarkable. He does not have any other signs of an acute CVA. His chemistries today do show that he would benefit from dialysis although he is not clinically overtly fluid overloaded. There was no signs of any specific infection. Had a discussion with the patient and his at bedside. We discussed the limitations that we have at our facility with regard to dialysis and admission to the hospital. We discussed options to include discharge home and attending his dialysis treatment today to see if this improves any of his symptoms and if he develops anything new or worsening that he could return to an emergency department versus keeping him here in the emergency department and seeking transfer to another facility where he could be admitted for further observation and treatment and dialysis. We discussed the risks and benefits of each of these decisions and after this discussion the opted to go home and have him attend his dialysis today. He was given return precautions. His expressed understanding and agreement. Discharge Plan Departure Patient Disposition: Home Clinical Impression: Fatigue Instructions: DI for Fatigue Activity Restrictions/Additional Instructions: Recommend that you continue to take all of your medications as directed and attend your dialysis appointment today at 3. Contact your primary doctor for follow-up. Return to the emergency department for new or worsening symptoms. Prescriptions: No Action trazodone 50 mg tablet 50 mg PO BEDTIME Qty: 30 5RF ferrous gluconate 324 mg (38 mg iron) tablet 324 mg PO DAILY Qty: 90 1RF nortriptyline 10 mg capsule 10 mg PO ONCE PM MDD 10mg Qty: 30 1RF Rx Instructions: Take one capsule by mouth at bedtime atorvastatin 40 mg tablet 40 mg PO BEDTIME Qty: 90 3RF carvedilol 25 mg tablet 25 mg PO BID Qty: 180 3RF Rx Instructions: must administer with a meal/food pantoprazole 40 mg tablet,delayed release (DR/EC) 40 mg PO DAILY Qty: 90 3RF calcium acetate(phosphat bind) 667 mg capsule 667 mg PO ONCE Patient Comments: TAKE 1 CAPSULE BY MOUTH THREE TIMES DAILY WITH MEALS isosorbide mononitrate 30 mg tablet extended release 24 hr 30 mg PO DAILY [employer] One 2.5-25-1 mg tablet 1 tab PO DAILY Patient Comments: TAKE 1 TABLET BY MOUTH EVERY DAY (DME) Disabled Parking Permit See Rx Instructions .Route .MEDSUPPLY Qty: 1 0RF Rx Instructions: I find this patient to be medically disabled and qualified for Disabled Parking as indicated and signed on the Accompanying Disabled Parking Application for Individuals. calcium carbonate [Tums Ultra] 400 mg calcium (1,000 mg) tablet,chewable 400 mg PO DAILY Rx Instructions: Take one at every meal and snack- hostess party sales representative trial ciprofloxacin HCl 250 mg tablet 250 mg PO BID Qty: 6 0RF Rx Instructions: Take one tablet twice daily one day prior to procedure. Take one tablet twice daily day of procedure. Take one tablet twice daily day after procedure. amlodipine 5 mg tablet 5 mg PO DAILY sevelamer HCl 800 mg tablet 800 mg PO TID Rx Instructions: must administer with a meal/food calcitriol 0.25 mcg capsule 0.25 mcg PO 3XW Rx Instructions: administer after dialysis on dialysis days vitamin B complex PO lisinopril 10 mg tablet 10 mg PO DAILY Referrals: Lei Newman, [Primary Care Provider] - Stand Alone Forms: Patient Portal/API
[2023-07-09 10:21] LABS: Add Manual Diff / Slide Review NO; Basophils Absolute Auto 0 /uL (0-100); Basophils Percent Auto 0.3 % (0-2); Eosinophils Absolute Auto 0 /uL (0-450); Hematocrit 31.7 % (41-53); Hemoglobin 10.7 g/dL (13.5-17.5); Lymphocytes Absolute Auto 400 /uL (1100-4500); Lymphocytes Percent Auto 5.2 % (25-40); Mean Corpuscular HGB Conc 33.8 % (30-36); Mean Corpuscular Hemoglobin 32.4 PG (26-34); Mean Corpuscular Volume 95.7 fL (80-100); Monocytes Absolute Auto 300 /uL (0-900); Monocytes Percent Auto 4.8 % (3-14); Neutrophils Absolute Auto 6100 /uL (1500-7000); Neutrophils Percent Auto 89.7 % (50-75); Platelet Count 99 X10^3/uL (150-400); Red Blood Cell Count 3.32 X10^6/uL (4.5-5.9); Red Cell Distribution Width 17.6 % (11.6-14.8); White Blood Cell Count 6.8 X10^3/uL (4.5-11.0)
[2023-07-09 10:38] LABS: Alanine Aminotransferase 15 IU/L (<50); Albumin 3.9 g/dL (3.5-5.0); Albumin Globulin Ratio 1.3 (1.0-2.8); Alkaline Phosphatase 80 U/L (38-126); Aspartate Aminotransferase 21 IU/L (17-59); BUN Creatinine Ratio 8.1 (6-22); Bilirubin Total 0.9 mg/dL (0.2-1.3); Blood Urea Nitrogen 101 mg/dL (9-20); Carbon Dioxide 19 mmol/L (22-32); Chloride 98 mmol/L (98-107); Creatine Kinase 157 U/L (55-170); Estimated Glomerular Filt Rate 4 mL/min (>60); Ethanol (ETOH) < 10 mg/dL; Glucose 187 mg/dL (80-110); HEMOLYSIS < 15 (0-50); Lipase 86 U/L (23-300); Magnesium 1.7 mg/dL (1.6-2.3); Potassium 5.3 mmol/L (3.4-5.1); Sodium 135 mmol/L (137-145); Total Protein 6.9 g/dL (6.3-8.2)
[2023-07-09 10:48] LABS: Troponin I 0.051 ng/mL (0.01-0.034)
== END 2023-07-09 12:30 | disposition home or self-care (01) ==
PROVIDERS: Emergency Provider Emergency Medicine; PCP Family Medicine
DX: R41.82 Altered mental status, unspecified (principal); R06.02 Shortness of breath; R53.83 Other fatigue; N18.6 End stage renal disease; Z79.899 Other long term (current) drug therapy; Z99.2 Dependence on renal dialysis
CPT/HCPCS: 36415; 70450; 70496; 70498; 71045; 80053; 80320; 82550; 82962; 83690; 83735; 84484; 85025; 93005; 99284

== ENCOUNTER → 2023-08-21 13:46 | Outpatient (CLI) | payer MEDICARE, OTHER, SELFPAY | PROVIDERS: PCP Family Medicine; Visit Provider Urology | DX: N18.6 End stage renal disease (principal); R31.0 Gross hematuria; N26.1 Atrophy of kidney (terminal); Z99.2 Dependence on renal dialysis; Z86.018 Personal history of other benign neoplasm | CPT/HCPCS: 52000; 87086 ==

== ENCOUNTER → 2023-09-26 15:55 | Outpatient (CLI) | payer MEDICARE, OTHER, SELFPAY ==
--- NOTE | 2023-09-26 | DI.RAD.S_ITS ---
PROCEDURE: XR CHEST 1V INDICATIONS: Encounter for fitting and adjustment of extracorporeal dialy TECHNIQUE: One view of the chest was acquired. COMPARISON: [facility], CR, XR CHEST 1V, 07/09/2023, 10:20. [facility], CR, XR CHEST 1V, 10/16/2022, 12:34. FINDINGS: Surgical changes and devices: Stable central is catheter. Median sternotomy wires. IVC filter in place. Lungs and pleura: Lungs are clear. No pleural effusions or pneumothorax. Mediastinum: Mediastinal contours appear normal. Heart size is normal. Bones and chest wall: No suspicious bony lesions. Overlying soft tissues appear unremarkable. IMPRESSION: No acute cardiopulmonary abnormality is seen. Dictated by: Akhil Houston M.D. on 09/26/2023 at 16:48 Approved by: Akhil Houston M.D. on 09/26/2023 at 16:48
== END ==
PROVIDERS: PCP Family Medicine; Referring Provider Internal Medicine Nephrology; Visit Provider Internal Medicine Nephrology
DX: Z49.01 Encounter for fitting and adjustment of extracorporeal dialysis catheter (principal); N18.6 End stage renal disease
CPT/HCPCS: 71045